=== PATIENT | female | born 1940 | race Caucasian/White ===

== ENCOUNTER 2018-08-03 18:00 | Inpatient (IN) | END 2018-08-12 18:24 | DRG 853 ==

== ENCOUNTER 2018-08-28 13:04 | Inpatient (IN) | payer MEDICARE, OTHER ==
[~2018-08-28] VITALS: Ht 165.1 cm; Wt 77.0 kg
[2018-08-28] VITALS (16 sets, daily range): BP systolic 146–180; BP diastolic 56–77; PULSE 71–97; RESP 16–33; Ht 165.1 cm; Wt 77.0 kg
[~2018-08-28 13:04] MED LIST: ACET325T45 PO; AMLO-147 PO; ASC500 PO; ATOR20TA38 PO; BISA10SU75 PR; CARV6.2579 PO; CLON-379 PO; CLON1PAT3 TD; HYDR-3670 PO; LACT10SO5 PO; LINA5TAB PO; LISI-471 PO; MAGN400O19 PO; METF100010 PO; MIRT7.5T8 PO; MULT-105 PO; NA P133E3 RC; ONDA4TAB95 PO; OXYC-380 PO; PREG300C PO; TERA2CAP3 PO; TIZA2TAB PO; ZINC220C5 PO
[2018-08-28] MEDS ORDERED: SOD CHLORIDE 0.9% 1,000 ML IV STA (13:05)
[2018-08-28] MEDS ORDERED: SOD CHLORIDE 0.9% 100 ML ONE (13:14)
[2018-08-28] MEDS ORDERED: IODIXANOL LOCM 100 ML BTL ONE (13:14)
--- NOTE | 2018-08-28 13:35 | NUR ---
Procedure Ordered:CTA CEREBRAL NECK ANGIO Reason for Exam Today: POSS STROKE Previous Exams: Allergies: Current Medications Taken: Glucophage ( ) Metformin ( ) Previous reaction to contrast media: Yes ( ) No (X ) : Yes ( ) No ( X) Asthma: Yes ( ) No (X ) Diabetes: Yes ( ) No ( X) Myeloma: Yes ( ) No (X ) Heart Disease: Yes ( ) No (X ) Cardiac Disease: Yes ( ) No XX( ) Kidney Disease: Yes ( ) No ( X) Vascular Disease: Yes ( ) No ( X) Patient Teaching done: Yes (X ) No ( ) Line Producer Used: Yes ( ) No (X ) Name of Line Producer: Language Used: As part of the test requested by your doctor, contrast media may be injected into your vein while the x-rays are being taken. Occasionally, reactions from IV contrast may occur. The physician and staff of this hospital are trained to treat these reactions. Select the type of Contrast that will be given to patient: Omnipaque 300 ( ) Omnipaque 350 ( ) Visipaque 320 (X ) Cystografin ( ) Gastrographin ( ) Redi-cat ( ) Volumen ( ) Amount of contrast to be given: 90CC IV ( X) PO ( ) Date given: 08/28/18 NO LABS AT TIME OF SCAN Lab Values: BUN: Creatinine: eGFR: Reason why contrast cannot be given: Location of patient pre-procedure: ER BED 19 Location of patient post procedure:ER BED 19 Patient tolerated exam well and returned to unit.
--- NOTE | 2018-08-28 14:16 | ERD ---
ER Documentation Chief Complaint Chief Complaint ALOC WITH LKWT YESTERDAY. O2 SAT 70% ON RA HPI Very limited history. This is a 77-year-old female who comes from assisted living facility with altered mental status. Paramedics were able to articulate the patient's last known normal was around 9 PM yesterday evening. Obtunded. Saturation at the facility was 95 but upon arrival saturation was found to be 70%. Remainder of HPI is extremely limited. The patient is responsive to verbal stimuli but generally weak with possible facial droop and weakness to the extremities possibly left greater than right. ROS All systems reviewed and are negative except as per history of present illness. Medications Home Meds Reported Medications Oxycodone Hcl-Acetaminophen* (Endocet*) 10-325 Mg Tablet, 1 TAB PO Q6H PRN for PAIN, TAB 08/03/18 Ondansetron Hcl* (Ondansetron Hcl*) 4 Mg Tablet, 4 MG PO Q4H PRN for NAUSEA AND OR VOMITING, TAB 08/03/18 Magnesium Hydroxide* (Milk Of Magnesia*) 400 Mg/5 Ml Oral.susp, 30 ML PO Q24H for CONSTIPATION, ML 08/03/18 Lactulose* (Lactulose*) 10 Gm/15 Ml Solution, 10 GM PO Q8, ML 08/03/18 Na Phos,M-B/Na Phos,Di-Ba (Enema) 133 Ml Enema, 133 ML RC Q2D PRN for NEEDED, ENEMA 08/03/18 Clonidine Hcl* (Clonidine Hcl*) 0.1 Mg Tab, 0.1 MG PO Q4H PRN for FOR SBP>160, TAB 08/03/18 Bisacodyl* (Bisacodyl*) 10 Mg Supp, 10 MG MI Q24H for CONSTIPATION, SUPP 08/03/18 Acetaminophen* (Acetaminophen*) 325 Mg Tablet, 650 MG PO Q4H PRN for PAIN 1- 12/07, #30 TAB OR FEVER 08/03/18 Clonidine Patch (CLONIDINE PATCH) 0.3 Mg/24 Hr Patch, 1 PATCH.WK TD Q SUN, #4 PATCH.WK 08/03/18 Tizanidine Hcl* (Tizanidine Hcl*) 2 Mg Tablet, 2 MG PO Q8H PRN for SPASTICITY, TAB 08/03/18 Pregabalin* (Lyrica*) 300 Mg Capsule, 300 MG PO BID, CAP 08/03/18 Hydralazine Hcl* (Hydralazine Hcl*) 10 Mg Tablet, 10 MG PO BID, #60 TAB 08/03/18 Carvedilol* (Carvedilol*) 6.25 Mg Tablet, 6.25 MG PO BID, #60 TAB 08/03/18 Zinc Sulfate* (Zinc Sulfate*) 220 Mg Cap, 220 MG PO DAILY, CAP 08/03/18 Linagliptin (TRADJENTA) 5 Mg Tablet, 5 MG PO DAILY, TAB 08/03/18 Multivitamin with Minerals (Multivitamins with Minerals) 1 Each Tablet, 1 EACH PO DAILY, TAB 08/03/18 Terazosin Hcl* (Terazosin Hcl*) 2 Mg Capsule, 2 MG PO HS, CAP 08/03/18 Mirtazapine* (Mirtazapine*) 7.5 Mg Tablet, 7.5 MG PO HS, TAB 08/03/18 Metformin Hcl* (Metformin Hcl*) 1,000 Mg Tablet, 2000 MG PO WITH BREAKFAST, #30 TAB 08/03/18 Lisinopril* (Lisinopril*) 20 Mg Tablet, 20 MG PO DAILY, #30 TAB 08/03/18 Atorvastatin Calcium* (Atorvastatin Calcium*) 20 Mg Tablet, 20 MG PO QHS, #30 TAB 08/03/18 Ascorbic Acid (Vitamin C) 500 Mg Tab, 500 MG PO DAILY, TAB 08/03/18 Amlodipine Besylate* (Amlodipine Besylate*) 10 Mg Tablet, 10 MG PO DAILY, #30 TAB 08/03/18 Allergies Allergies: Coded Allergies: Macrolide Antibiotics (Unverified Allergy, Unknown, 08/03/18) erythromycin base (Unverified Allergy, Unknown, 08/03/18) vancomycin (Unverified Allergy, Unknown, 08/03/18) PMhx/Soc History of Surgery: Yes Anesthesia Reaction: No Hx Neurological Disorder: No Hx Respiratory Disorders: No Hx Cardiac Disorders: Yes (htn ) Hx Psychiatric Problems: No Hx Miscellaneous Medical Probl: Yes (OBESITY STAGE I) Hx Alcohol Use: Yes Hx Substance Use: No Hx Tobacco Use: No Smoking Status: Never smoker FmHx Family History: No diabetes Physical Exam Vitals Vital Signs Date Temp Pulse Resp B/P (MAP) Pulse Ox O2 O2 Flow FiO2 Time Delivery Rate 08/28/18 80 96 30 14:12 08/28/18 Non 15 13:10 Rebreather 08/28/18 97.9 91 8 178/73 70 13:05 (108) Physical Exam General: Disheveled elderly female who is slow to respond Head: Normocephalic, atraumatic. Eyes: Pupils equally reactive, EOM intact ENT: Dry mucous membranes Neck: Supple, no lymphadenopathy Respiratory: Lungs clear bilaterally, no distress Cardiovascular: RRR, no murmurs, rubs, or gallops Abdominal: Soft, non-tender, non-distended, no peritoneal signs : Deferred MSK: Cyanotic extremities with generalized weakness and limited movement of her bilateral lower extremities. The patient has weakness to the bilateral upper extremities with slight left greater than right deficit. Neurologic: The patient is very slow to respond she is moving extremities but has somewhat of a deficits in the left upper extremity. This is inconsistent. Her dysfunction seems to be more global the patient does have a possible facial droop unclear if this is new versus old. Very limited exam Skin: No rash Result Diagram: 08/28/18 1311 08/28/18 1311 Results 24 hrs Laboratory Tests Test 08/28/18 13:05 08/28/18 13:11 08/28/18 13:17 Blood Gas Specimen Source Blood arterial Arterial Blood Date 08/28/2018 1:38:34 PM Drawn Arterial Blood pH 7.281 (Temp corrected) Arterial Blood pCO2 60.4 mmhg (Temp correct) Arterial Blood pO2 181.6 mmHG (Temp corrected) Arterial Blood HCO3 27.8 mmol/L Arterial Blood Base 0.4 mmol/L Excess Arterial Blood 98.5 mmHG Oxygen Saturation Humble Test ACCEPTAB Arterial Blood Gas Right Radial Puncture Site Arterial 2.7 % Blood Carboxyhemoglobin Arterial Blood 0.2 % Methemoglobin Blood Gas A-a O2 471.0 mmHg Differential Oxyhemoglobin Percent 95.6 % Blood Gas Temperature 37.0 C Blood Gas Modality MASK - NRB FiO2 100.0 % Blood Gas Critical Value DR. NICOLE Read Back Blood Gas Notified Whom Josiane Blood Gas Notified Time 08/28/2018 1:49:07 PM White Blood Count 7.3 10^3/ul Red Blood Count 2.94 10^6/ul Hemoglobin 8.7 g/dl Hematocrit 28.7 % Mean Corpuscular Volume 97.6 fl Mean Corpuscular 29.6 pg Hemoglobin Mean Corpuscular 30.3 g/dl Hemoglobin Concent Red Cell Distribution 14.6 % Width Platelet Count 170 10^3/UL Mean Platelet Volume 11.7 fl Immature Granulocytes % 0.600 % Neutrophils % 84.2 % Lymphocytes % 8.6 % Monocytes % 5.4 % Eosinophils % 0.8 % Basophils % 0.4 % Nucleated Red Blood Cells 0.0 /100WBC % Immature Granulocytes # 0.040 10^3/ul Neutrophils # 6.1 10^3/ul Lymphocytes # 0.6 10^3/ul Monocytes # 0.4 10^3/ul Eosinophils # 0.1 10^3/ul Basophils # 0.0 10^3/ul Nucleated Red Blood Cells 0.0 10^3/ul # Prothrombin Time 11.8 Sec Prothrombin Time Ratio 0.9 INR International 0.86 Normalized Ratio Activated 29.7 Sec Partial Thromboplast Time Sodium Level 141 mmol/L Potassium Level 6.0 mmol/L Chloride Level 105 mmol/L Carbon Dioxide Level 26 mmol/L Anion Gap 10 Blood Urea Nitrogen 24 mg/dl Creatinine 1.37 mg/dl Est Glomerular Filtrat mL/min Rate mL/min Glucose Level 188 mg/dl Hemoglobin A1c 6.9 % Calcium Level 9.0 mg/dl Total Bilirubin 0.1 mg/dl Direct Bilirubin 0.00 mg/dl Indirect Bilirubin 0.1 mg/dl Aspartate Amino 14 IU/L Transf (AST/SGOT) Alanine 17 IU/L Aminotransferase (ALT/SGP T) Alkaline Phosphatase 119 IU/L Creatine Kinase 40 IU/L Creatine Kinase Index 3.0 Creatinine Kinase MB 1.18 ng/ml (Mass) Troponin I 0.051 ng/ml Total Protein 6.1 g/dl Albumin 3.3 g/dl Globulin 2.80 g/dl Albumin/Globulin Ratio 1.17 Triglycerides Level 164 mg/dl Cholesterol Level 157 mg/dl LDL Cholesterol, 63 mg/dl Calculated HDL Cholesterol 61 mg/dl Cholesterol/HDL Ratio 2.5 RATIO Lipase 32 U/L Ethyl Alcohol Level < 10.0 mg/dl POC Venous Lactate 1.0 mmol/L Current Medications Medications Dose Sig/Lala Start Time Status Last (Trade) Ordered Route PRN Stop Time Admin Dose Reason Admin Sodium 1,000 ml @ Q1H STAT 08/28/18 DC Chloride 1,000 mls/hr IV 13:05 08/28/18 14:04 Iodixanol 100 ml STK-MED 08/28/18 DC 08/28/18 (Visipaque ONCE .ROUTE 13:14 13:45 Locm) 08/28/18 13:15 Sodium 100 ml @ ud STK-MED 08/28/18 DC 08/28/18 Chloride ONCE .ROUTE 13:14 13:46 08/28/18 13:15 Procedures/MDM EKG, MONITORS, & DIAGNOSTIC IMAGING: EKG: I reviewed and interpreted a 12-lead EKG. Rhythm: Normal sinus rhythm ST Changes: No contiguous ST segment elevations T waves: No contiguous T wave inversions Impression: [No evidence of acute cardiac ischemia] Chest x-ray: I reviewed and interpreted a 1 view of the chest Mediastinum: No enlargement Cardiac silhouette: cardiomegaly Airspace: Atelectasis without clear infiltrate Bones: No evidence of fracture LAB INTERPRETATION: * CBC shows no evidence of severe infection with a normal white count, slight anemia of 8.7 * Arterial blood gas shows evidence of hypercarbic respiratory acidosis * Chemistry profile with mild renal insufficiency, potassium of 6.0 normal lactic acid 1.0, negative troponin MEDICAL DECISION MAKING: The patient presents with acute encephalopathy, hypoxia and altered mental status. Unclear etiology and given possible deficits of the left upper extremity code stroke was initiated. The patient is not a TPA candidate given last known well time greater than 4-1/2 hours prior to arrival. The patient will have a CTA and if the patient is a large vessel occlusion she may be an interventional candidate but given her more global presentation this seems less likely to be secondary to acute ischemic stroke. ER COURSE: * Upon arrival a code stroke was initiated. I spoke to Dr. Vazquez, the telemedicine neurologist and discussed the case. Given that the patient has atypical presentation, is not a TPA candidate [id number] evaluation is not necessarily indicated. If the patient is in LVO she will evaluate the patient. I believe this is appropriate. She agrees with the plan of care. * Sepsis screening was initiated. * Supplemental oxygen improved the patient's oxygen saturation. * The patient's ABG shows respiratory acidosis, the patient will benefit from positive pressure ventilation. This point the patient is protecting her airway. Narcotics may be playing a role but reversal agent is not indicated as the patient is chronically on these medications at this may precipitate seizure and worsening symptoms. * Permissive hypoxia given COPD history would be appropriate. * No LVO on CTAs, not interventional candidate * Hyperkalemia likely to correct with fluid resuscitation. No indication for Kayexalate and the patient is not a good candidate given altered mental status. No EKG changes to suggest need for calcium. Continue to monitor. CONSULTATION: [None] DISPOSITION PLAN: Intensive care unit Accepting care team and consultations: I discussed the current laboratory data, diagnostic imaging and emergency care provided. Admitting team: Dr Maciel Admitting team indication: Insurance directed Critical Care Note: Total time: 40 minutes Indication/Organ System Threat: Acute hypoxemic respiratory failure I spent the above amount of critical care time with the patient, not including billable procedures. This included chart review, consultations, repeat bedside evaluations, and titration of appropriate medications to prevent cardiopulmonary or respiratory collapse. Departure Diagnosis: Primary Impression: Acute hypoxemic respiratory failure Additional Impressions: Acute encephalopathy Acute hypercapnic respiratory failure Polypharmacy Mild renal insufficiency Hyperkalemia Condition: Serious ERNA NICOLE MD Aug 28, 2018 14:16
[2018-08-28] MEDS ORDERED: NACL 0.9% 3 ML SYG IV SCH (15:00)
[2018-08-28] MEDS ORDERED: ONDANSETRON 4 MG INJ IV PRN (15:00)
[2018-08-28] MEDS ORDERED: BISACODYL 10 MG SUPP PR SCH (15:30)
[2018-08-28] MEDS ORDERED: MAGNESIUM HYDROXIDE 30ML CUP PO SCH (15:30)
--- NOTE | 2018-08-28 15:37 | HP ---
Date/Time of Note Date/Time of Note DATE: 08/28/18 TIME: 15:09 Assessment/Plan VTE Prophylaxis Pharmacological prophylaxis: heparin Lines/Catheters IV Catheter Type (from Nrsg): Saline Lock Assessment/Plan Assessment/Plan 77 yo woman with peripheral arterial disease s/p amputation and chronic pain; pacemaker for heart block presents with acute encephalopathy and respiratory failure #Encephalopathy #Respiratory failure, hypoxic and hypercapnic. - I believe this is likely due to polypharmacy, especially opioids, benzodiazepines, antispasmodics, and antidepressants. This is what we suspected last admission as well. I will hold all sedating meds for now. - Will hold off on narcan. Patient is protecting her airway and this can precipitate seizures. - Differential also includes: Infection: The patient does not appear septic with no fevers, WBC, or tachycardia. Source could be UA (RBC and WBC but no bacteria or leuk esterase), or pneumonia (CXR with nonspecific atelectasis and small effusion). I have a low suspicion for infection so will hold off on antibiotics. Cardiac: Patient denies chest pain. Trops mildly elevated. Will trend trops. EKG with bifascicular block. No e/o acute ischemia. Cerebrovascular: With her PAD and DM2, patient is at high risk of stroke. Will plan to get MRI when she is off bipap and clinically more stable. - Admit to ICU for monitoring. #NIDDM - Hold home antiglycemics - Insulin sliding scale. #Peripheral artery disease - Cont statin - Cont lyrica for pain. - Hold opioids for pain until mental status improves. #HTN - Cont norvasc, beta willa, - Hold ACEi if still hyperkalemic in AM #Hyperkalemia - This can be from extracellular shift due to profound acidemia. - Will trend. If remains elevated will consider insulin or kayexalate. #History of PUD with recent GI bleed - Continue PPI #CKD - Cr currently at baseline, around 1.3-1.4. - Avoid nephrotoxins, renally dose meds when indicated. Result Diagram: 08/28/18 1311 08/28/18 1311 HPI/ROS Admit Date/Time Admit Date/Time 08/28/[address] Hx of Present Illness Dr. Vazquez, the telemedicine neurologistMs. Ariane Tavares is a 77 yo woman with history of peripheral arterial disease and heart block requiring pacemaker who presents with AMS. Patient is confused and minimally responsive; most history is per charting and son at bedside. She was hospitalized here at [facility] 08/03-08/12 for bacteremia, heart block, and GI bleed. After discharge she was sent to SNF to finish a course of IV antibiotics. Around 08/18 she returned back to her assisted living, where she lives with her . The patient was in her usual state of health until this morning, when she was found by nursing staff to have altered mental status. Paramedics were able to a rticulate the patient's last known normal was around 9 PM yesterday evening. Obtunded. Saturation at the facility was 95 but upon arrival saturation was found to be 70%. According to her son she is on high doses of percocet for chronic peripheral vascular pain as well as Ativan for anxiety. In the ED, she was hypoxic saturating 70% on room air. She required nonrebreather mask. Code stroke was called, per discussion with Dr. Vazquez, the telemedicine neurologist, TPA would not be indicated so [id number] evaluation not needed. CT head without obvious LVO. Her oxygenation improved on BiPAP, she will admitted to ICU. ROS Subjective hx not possible: pt critical PMH/Family/Social Past Medical History Hypertension IDDM Peripheral arterial disease Heart block s/p PPM Peptic ulcer disease Chronic pain on opioid analgesics Medications Current Medications IV Flush (NS 3 ml) 3 ml PER PROTOCOL IV ; Start 08/28/18 at 15:00; Status UNV Ondansetron HCl (Zofran Inj) 4 mg Q6H PRN IV NAUSEA AND/OR VOMITING; Start 08/28/18 at 15:00; Status UNV Pantoprazole (Protonix Tab) 40 mg DAILY@06 PO ; Start 08/29/18 at 06:00; Status UNV Heparin Sodium (Porcine) (Heparin (5000 Units/1ml)) 5,000 unit Q12 SC ; Start 08/28/18 at 21:00; Status UNV Senna (Senokot) 2 tab BID PO ; Start 08/28/18 at 21:00; Status UNV Coded Allergies: Macrolide Antibiotics (Unverified Allergy, Unknown, 08/03/18) erythromycin base (Unverified Allergy, Unknown, 08/03/18) vancomycin (Unverified Allergy, Unknown, 08/03/18) Past Surgical History R BKA. Permanent pacemaker 07/2018 Past Surgical Hx: other Family History Significant Family History: other Social History Alcohol Use: none Smoking Status: Never smoker Drug Use: none Exam/Review of Systems Vital Signs Vitals Vital Signs Date Temp Pulse Resp B/P (MAP) Pulse Ox O2 O2 Flow FiO2 Time Delivery Rate 08/28/18 97.9 84 17 143/81 95 BIPAP 14:54 (101) 08/28/18 30 14:50 08/28/18 15 13:10 Exam Exam Gen: Frail appearing elderly woman confused on BiPAP. Eyes: Pupils nonreactive bilaterally. No icterus. HEENT: Apparent L facial droop. Tongue also appears to deviate L. Moist mucous membranes. Neck: No lymphadenopathy Chest: Palpable L pacemaker pocket. Card: Regular rate and rhythm, no murmurs Pulm: Clear to auscultation bilaterally. Abd: Soft, nontender, nondistended. No palpable organomegaly Ext: R BKA with prosthesis on. L leg well healed scar from surgical patellofemoral bypass. Palpable DP pulse 2+ HAL DUFF MD Aug 28, 2018 15:19
[2018-08-28] MEDS ORDERED: GLUCOSE GEL 15 GRAM TUBE PO PRN ×2 (16:00)
[2018-08-28] MEDS ORDERED: DEXTROSE 50% 50 ML SYRINGE IV PRN ×2 (16:00)
[2018-08-28] MEDS ORDERED: GLUCAGON 1 MG INJ IM PRN (16:00)
[2018-08-28] MEDS ORDERED: GLUCOSE GEL 15 GRAM TUBE BUCCAL PRN (16:00)
[2018-08-28] MEDS: INSULIN ASPART [NOVOLOG] 3 ML PEN SC SCH ×2 (17:35→21:00)
[2018-08-28] MEDS ORDERED: FLUCONAZOLE 150 MG TAB PO ONE (18:30)
--- NOTE | 2018-08-28 19:57 | NUR ---
Eoss -- Received Pt from ED RN - Pt lethargic but arousable and able to answer her name, son's name, name of hospital, and facility she came from - Pt placed on Bipap with Dr. Maciel present -Son Bao called updated on condition - Printed Pacemaker information for possible MRI - Endorsed to Night RN
[2018-08-28] MEDS: PREGABALIN 100 MG CAP PO SCH (21:00)
[2018-08-28] MEDS: SENNA TAB PO SCH (21:00)
[2018-08-28] MEDS: TERAZOSIN 2 MG CAP PO SCH (21:00)
[2018-08-28] MEDS: ATORVASTATIN 20 MG TAB PO SCH (21:00)
[2018-08-28] MEDS: HEPARIN 5,000 UNIT/1 ML VIAL SC SCH (21:32)
[2018-08-28] MEDS: hydrALAzine 20 MG INJ IV PRN (22:40)
[2018-08-29] VITALS (40 sets, daily range): BP systolic 125–183; BP diastolic 38–163; PULSE 61–97; RESP 15–30
[2018-08-29] MEDS ORDERED: ACCU-CHEK XX SCH (02:00)
[2018-08-29] MEDS: PANTOPRAZOLE 40 MG INJ IV SCH (05:31)
[2018-08-29] MEDS ORDERED: PANTOPRAZOLE (EC) 40 MG TAB PO SCH (06:00)
--- NOTE | 2018-08-29 06:15 | NUR ---
EOSS Received pt very lethargic but arouses when spoken to, responds appropriately but with short responses. Is able to move upper extremities but has weakness. Pt refused to take off jewelry therefore it is still on patient. Patient remains on BIPAP throughout night, critical ABG results reported to Dr. Oglesby, Bipap setting changes made. PRN hydralazine given once. PO meds held due to NPO, plus patient is too lethargic to do bedside swallow eval. Pt remains with low grade fever, cooling measures initiated, cool bed bath given, all linens changed, wound care dressing changed, bed in lowest position, bed brakes activated, repositioned q2h. Spoke to son Bao twice, updated on patient condition.
[2018-08-29] MEDS: INSULIN ASPART [NOVOLOG] 3 ML PEN SC SCH ×5 (07:35→21:28)
[2018-08-29] MEDS: LISINOPRIL 20 MG TAB PO SCH (08:39)
[2018-08-29] MEDS: PREGABALIN 100 MG CAP PO SCH ×2 (08:39→20:52)
[2018-08-29] MEDS: AMLODIPINE 10 MG TAB PO SCH (08:39)
[2018-08-29] MEDS: SENNA TAB PO SCH ×2 (08:39→20:52)
[2018-08-29] MEDS: HEPARIN 5,000 UNIT/1 ML VIAL SC SCH ×2 (08:59→21:28)
--- NOTE | 2018-08-29 09:19 | PN ---
Date/Time of Note Date/Time of Note DATE: 08/29/18 TIME: 09:10 Assessment/Plan VTE Prophylaxis Risk score (from Nsg)>0 risk: 7 SCD applied (from Nsg): Yes SCD contraindicated: other Pharmacological prophylaxis: heparin Lines/Catheters IV Catheter Type (from Nrsg): Peripheral IV Urinary Cath still in place: Yes Reason Cath still needed: urinary retention Assessment/Plan Assessment/Plan S: Patient still on BiPAP, awaiting ABG to be performed later this morning. O: VS - see below PE: Gen: Frail appearing elderly woman confused on BiPAP. Eyes: Pupils nonreactive bilaterally. No icterus. HEENT: Apparent L facial droop. Tongue also appears to deviate L. Moist mucous membranes. Neck: No lymphadenopathy Chest: Palpable L pacemaker pocket. Card: Regular rate and rhythm, no murmurs Pulm: Clear to auscultation bilaterally. Abd: Soft, nontender, nondistended. No palpable organomegaly Ext: R BKA with prosthesis on. L leg well healed scar from surgical patellofemoral bypass. Palpable DP pulse 2+ A/P: 77 yo woman with peripheral arterial disease s/p amputation and chronic pain; pacemaker for heart block presents with acute encephalopathy and respiratory failure #Encephalopathy -patient also respiratory failure - hypoxic and hypercapnic-both these possibly due to polypharmacy, especially opioids, benzodiazepines, antispasmodics, and antidepressants. This is what we suspected last admission as well. Has been on BiPAP since admission. -Continue to hold all sedating meds for now. -For now holding off on narcan. Patient is protecting her airway and this can precipitate seizures. -Given her initial facial droop, with her PAD and DM2, patient is at high risk of stroke. Will plan to get MRI when she is off bipap and clinically more stable. -Follow-up recommendations from pulmonary team, try to wean off BiPAP #NIDDM -sugars presently stable. A1c is 6.9. - Hold home antiglycemics - Insulin sliding scale. #Peripheral artery disease - Cont statin - Cont lyrica for pain. - Hold opioids for pain until mental status improves. #HTN -blood pressure presently stable - Cont norvasc, beta willa, - Hold ACEi if still hyperkalemic in AM #Hyperkalemia- This can be from extracellular shift due to profound acidemia. Potassium slightly improved this morning but still elevated overall 5.4 - Will trend. - If remains elevated will consider insulin or kayexalate. #History of PUD with recent GI bleed - Continue PPI #CKD- Cr currently at baseline, around 1.3-1.4. - Avoid nephrotoxins, renally dose meds when indicated Critical care time spent on patient care today equals 45 minutes. Result Diagram: 08/29/18 0423 08/29/18 0423 Results 24hrs Laboratory Tests Test 08/28/18 13:05 08/28/18 13:11 08/28/18 13:17 08/28/18 14:44 Blood Gas Blood arterial Specimen Source Arterial Blood 08/28/2018 1:38 Date Drawn :34 PM Arterial Blood 7.281 *L pH (Temp corrected ) Arterial Blood 60.4 H pCO2 (Temp correct) Arterial Blood 181.6 H pO2 (Temp corrected ) Arterial Blood 27.8 H HCO3 Arterial Blood 0.4 Base Excess Arterial Blood 98.5 Oxygen Saturati on Humble Test ACCEPTAB Arterial Blood Right Radial Gas Puncture Site Arterial 2.7 Blood Carboxyhe moglobin Arterial Blood 0.2 Methemoglobin Blood Gas A-a 471.0 H O2 Differential Oxyhemoglobin 95.6 Percent Blood Gas 37.0 Temperature Blood Gas MASK - NRB Modality FiO2 100.[address] NICOLE Critical Value Read Back Blood Gas Josiane Notified Whom Blood Gas 08/28/2018 1:49 Notified Time :07 PM White Blood 7.3 # Count Red Blood Count 2.94 L Hemoglobin 8.7 L Hematocrit 28.7 L Mean 97.6 Corpuscular Volume Mean 29.6 Corpuscular Hemoglobin Mean 30.3 L Corpuscular Hemoglobin Conc ent Red Cell 14.6 H Distribution Width Platelet Count 170 Mean Platelet 11.7 H Volume Immature 0.600 H Granulocytes % Neutrophils % 84.2 H Lymphocytes % 8.6 L Monocytes % 5.4 Eosinophils % 0.8 Basophils % 0.4 Nucleated Red 0.0 Blood Cells % Immature 0.040 H Granulocytes # Neutrophils # 6.1 Lymphocytes # 0.6 L Monocytes # 0.4 Eosinophils # 0.1 Basophils # 0.0 Nucleated Red 0.0 Blood Cells # Prothrombin 11.8 L Time Prothrombin 0.9 Time Ratio INR 0.86 International Normalized Rati o Activated 29.7 Partial Thrombo plast Time Sodium Level 141 Potassium Level 6.0 H Chloride Level 105 Carbon Dioxide 26 Level Anion Gap 10 Blood Urea 24 H Nitrogen Creatinine 1.37 H Est Glomerular Filtrat Rate mL/min Glucose Level 188 Hemoglobin A1c 6.9 H Calcium Level 9.0 Total Bilirubin 0.1 L Direct 0.00 Bilirubin Indirect 0.1 Bilirubin Aspartate Amino 14 L Transf (AST/SGO T) Alanine 17 Aminotransferas e (ALT/SGPT) Alkaline 119 Phosphatase Creatine Kinase 40 Creatine Kinase 3.0 Index Creatinine 1.18 Kinase MB (Mass) Troponin I 0.051 Total Protein 6.1 Albumin 3.3 Globulin 2.80 Albumin/Globuli 1.17 n Ratio Triglycerides 164 H Level Cholesterol 157 Level LDL 63 Cholesterol, Calculated HDL Cholesterol 61 Cholesterol/HDL 2.5 Ratio Lipase 32 Ethyl Alcohol < 10.0 H Level POC Venous 1.0 Lactate Urine Color YELLOW Urine Clarity CLEAR Urine pH 6.0 Urine Specific 1.024 Pixley Urine Ketones NEGATIVE Urine Nitrite NEGATIVE Urine Bilirubin NEGATIVE Urine NEGATIVE Urobilinogen Urine Leukocyte NEGATIVE Esterase Urine 1 Microscopic RBC Urine 6 H Microscopic WBC Urine NEGATIVE Hemoglobin Urine Glucose 1+ H Urine Total 3+ H Protein Urine Opiates Positive Screen Urine Negative Barbiturates Urine Negative Amphetamines Screen Urine Negative Benzodiazepines Screen Urine Cocaine Negative Screen Urine Negative Cannabinoids Test 08/28/18 15:58 08/28/18 17:01 08/28/18 17:18 08/28/18 21:06 Sodium Level 141 Potassium Level 5.8 H Chloride Level 108 Carbon Dioxide 26 Level Anion Gap 7 Blood Urea 22 H Nitrogen Creatinine 1.25 H Est Glomerular Filtrat Rate mL/min Glucose Level 164 Calcium Level 8.7 Phosphorus 5.5 H Level Magnesium Level 2.1 Lactic Acid 0.7 Level Troponin I 0.121 H Bedside Glucose 157 153 Test 08/28/18 22:46 08/29/18 00:52 08/29/18 04:23 08/29/18 05:00 Bedside Glucose 140 Troponin I 0.196 *H White Blood 5.7 # Count Red Blood Count 2.69 L Hemoglobin 8.0 L Hematocrit 25.7 L Mean 95.5 Corpuscular Volume Mean 29.7 Corpuscular Hemoglobin Mean 31.1 L Corpuscular Hemoglobin Conc ent Red Cell 14.6 H Distribution Width Platelet Count 145 Mean Platelet 11.9 H Volume Immature 0.300 Granulocytes % Neutrophils % 85.0 H Lymphocytes % 8.5 L Monocytes % 5.7 Eosinophils % 0.3 Basophils % 0.2 Nucleated Red 0.0 Blood Cells % Immature 0.020 Granulocytes # Neutrophils # 4.9 Lymphocytes # 0.5 L Monocytes # 0.3 Eosinophils # 0.0 Basophils # 0.0 Nucleated Red 0.0 Blood Cells # Sodium Level 140 Potassium Level 5.4 H Chloride Level 111 H Carbon Dioxide 26 Level Anion Gap 3 L Blood Urea 20 Nitrogen Creatinine 1.18 H Est Glomerular Filtrat Rate mL/min Glucose Level 140 Hemoglobin A1c 6.9 H Calcium Level 8.5 Phosphorus 4.7 Level Magnesium Level 2.0 Total Bilirubin 0.0 L Direct 0.00 Bilirubin Indirect 0.0 Bilirubin Aspartate Amino 14 L Transf (AST/SGO T) Alanine 14 Aminotransferas e (ALT/SGPT) Alkaline 101 Phosphatase Total Protein 5.3 L Albumin 2.6 L Globulin 2.70 Albumin/Globuli 0.96 n Ratio Thyroid 0.990 Stimulating Hormone (TSH) Blood Gas Blood Specimen arterial Source Arterial Blood 08/29/2018 5:0 Date Drawn 0:25 AM Arterial Blood 7.291 *L pH (Temp corrected ) Arterial Blood 57.1 H pCO2 (Temp correct) Arterial Blood 129.0 H pO2 (Temp corrected ) Arterial Blood 26.9 H HCO3 Arterial Blood -0.5 Base Excess Arterial Blood 97.8 Oxygen Saturati on Humble Test ACCEPTAB Arterial Blood Right Radial Gas Puncture Site Arterial 1.0 Blood Carboxyhe moglobin Arterial Blood 0.3 Methemoglobin Blood Gas A-a 163.3 H O2 Differential Oxyhemoglobin 96.5 Percent Blood Gas 37.0 Temperature Blood Gas 14.0 Respiration Rate Blood Gas 18 Actual Respiration Rat e Blood Gas MASK - BIPAP Modality FiO2 50.0 Blood Gas 15/5 IPAP/EPAP Ratio Blood Gas K. Critical Value MARCUS VALENTIN Read Back Blood Gas Notified Whom Blood Gas 08/29/2018 5:1 Notified Time 2:44 AM Test 08/29/18 08:54 Bedside Glucose 123 Exam/Review of Systems Vital Signs Vitals Vital Signs Date Temp Pulse Resp B/P (MAP) Pulse Ox O2 O2 Flow FiO2 Time Delivery Rate 08/29/18 62 22 139/49 100 BIPAP 06:00 (79) 08/29/18 40 05:56 08/29/18 100.0 04:30 08/28/18 15 13:10 Intake and Output 08/28/18 08/28/18 08/29/18 1515:00 23:00 07:00 IntakeIntake Total 1100 ml OutputOutput Total 800 ml 525 ml BalanceBalance -800 ml 575 ml Medications Medications Current Medications IV Flush (NS 3 ml) 3 ml PER PROTOCOL IV ; Start 08/28/18 at 15:00 Ondansetron HCl (Zofran Inj) 4 mg Q6H PRN IV NAUSEA AND/OR VOMITING Last administered on 08/29/18at 00:41; Admin Dose 4 MG; Start 08/28/18 at 15:00 Heparin Sodium (Porcine) (Heparin (5000 Units/1ml)) 5,000 unit Q12 SC Last administered on 08/29/18at 08:59; Admin Dose 5,000 UNIT; Start 08/28/18 at 21:00 Senna (Senokot) 2 tab BID PO ; Start 08/28/18 at 21:00 Amlodipine Besylate (Norvasc) 10 mg DAILY PO ; Start 08/29/18 at 09:00 Atorvastatin Calcium (Lipitor) 20 mg QHS PO ; Start 08/28/18 at 21:00 Carvedilol (Coreg) 6.25 mg BID PO ; Start 08/28/18 at 21:00 Hydralazine HCl (Apresoline) 10 mg BID PO ; Start 08/28/18 at 21:00 Lisinopril (Zestril) 20 mg DAILY PO ; Start 08/29/18 at 09:00 Pregabalin (Lyrica) 300 mg BID PO ; Start 08/28/18 at 21:00 Terazosin HCl (Hytrin) 2 mg HS PO ; Start 08/28/18 at 21:00 Miscellaneous Information 1 ea NOTE XX ; Start 08/28/18 at 16:00 Glucose (Glutose) 15 gm Q15M PRN PO DECREASED GLUCOSE; Start 08/28/18 at 16:00 Glucose (Glutose) 22.5 gm Q15M PRN PO DECREASED GLUCOSE; Start 08/28/18 at 16:00 Dextrose (D50w Syringe) 25 ml Q15M PRN IV DECREASED GLUCOSE; Start 08/28/18 at 16:00 Dextrose (D50w Syringe) 50 ml Q15M PRN IV DECREASED GLUCOSE; Start 08/28/18 at 16:00 Glucagon (Glucagen) 1 mg Q15M PRN IM DECREASED GLUCOSE; Start 08/28/18 at 16:00 Glucose (Glutose) 15 gm Q15M PRN BUCCAL DECREASED GLUCOSE; Start 08/28/18 at 16:00 Fluconazole (Diflucan) 150 mg ONCE ONCE PO ; Start 08/29/18 at 11:00; Stop 08/29/18 at 11:01 Hydralazine HCl (Apresoline) 10 mg Q4H PRN IV SBP ABOVE 170 Last administered on 08/28/18at 22:40; Admin Dose 10 MG; Start 08/28/18 at 21:00 Pantoprazole (Protonix Iv) 40 mg DAILY@06 IV Last administered on 08/29/18at 05:31; Admin Dose 40 MG; Start 08/29/18 at 06:00 Insulin Aspart (Novolog Insulin Pen) NOVOLOG *MODERATE* ALGORI... Q4 SC ; Start 08/29/18 at 09:00 JAIME RODRÍGUEZ Aug 29, 2018 09:19
--- NOTE | 2018-08-29 09:39 | NUR ---
ATTEMPTED TO DO BEDSIDE SWALLOW EVAL. UNABLE TO DO IT DUE TO PATIENT BEING TO LETHARGIC.
--- NOTE | 2018-08-29 10:31 | NUR ---
ST evaluation order appreciated and received. ST unable to complete bedside swallow evaluation at this time since pt is currently on BIPAP. Altered RN that ST will f/u schedule permits to determine pts safety with p.o intake due to her poor ability to maintain SPO2 level without desatting.
[2018-08-29] MEDS ORDERED: FLUCONAZOLE 150 MG TAB PO ONE (11:00)
[2018-08-29] MEDS: NICOTINE (21 MG/24 HR) PATCH TRANSDERM SCH (11:30)
--- NOTE | 2018-08-29 11:33 | NUR ---
SS NOTE: READMISSION PT ADMITTED FROM [facility]. CURRENTLY RESTING ON BIPAP. PT WAS DISCHARGED FROM THE HOSPITAL TO [facility] AND LATER WAS DISCHARGED BACK TO HER INDEPENDENT LIVING FACILITY, [facility] WHERE SHE LIVES WITH HER , [employer] . PT ALSO HAS A SON, DIANNE TSAI WHO IS IN THE AREA. PT DOES NOT HAVE AHCD IN THE CHART. SW UNABLE TO CONTACT PT'S FAMILY TO INQUIRED ABOUT PT'S AHCD. PT'S D/C PLANS AT THIS TIME IS PENDING ON PT'S CONDITION AND LEVEL OF CARE NEEDED ONCE PT IS CLOSER TO D/C. SW WILL CONTINUE TO F/U WITH PT AND FAMILY NEEDED.
--- NOTE | 2018-08-29 11:47 | NUR ---
DR RODRÍGUEZ NOTIFIED OF PATIENT NOT BEING ABLE TO TAKE ANY PO MEDS REGARDING DIFLUCAN. NO ORDERS GIVEN AT THIS TIME.
[2018-08-29] MEDS ORDERED: CLONIDINE 0.1 MG/24 HR PATCH TRANSDERM SCH (13:30)
[2018-08-29] MEDS: ALBUTEROL/IPRATROPIUM (NEB) 3 ML AMP HHN SCH ×2 (13:33→20:00)
--- NOTE | 2018-08-29 13:57 | CONS ---
DATE OF ADMISSION: 08/28/2018 DATE OF CONSULTATION: 08/29/2018 REASON FOR CONSULTATION: Shortness of breath, altered mental status. Thank you, Dr. Duff, for this consultation. HISTORY OF PRESENT ILLNESS: This is a 77-year-old lady with extensive tobacco history, half to 1 pac k per day for 50+ years. Originally presented with altered mental status, respiratory distress, foun d to have hyperkalemia with worsening respiratory acidosis. The patient initially placed on noninvas compa positive pressure ventilation this morning and improvement in her neurological status. However, did not tolerate coming off bilevel ventilation. PAST MEDICAL HISTORY: 1. COPD. 2. Insulin-dependent diabetes. 3. Essential hypertension. 4. Peripheral vascular disease. 5. Mild chronic renal insufficiency. MEDICATIONS: Per chart. ALLERGIES: None. SOCIAL HISTORY: Positive tobacco history. Alcohol: Unknown. PHYSICAL EXAMINATION: GENERAL: Well-nourished, well-developed lady, comfortable at rest, no acute distress. VITAL SIGNS: Currently afebrile, pulse is 78, blood pressure 160/55, O2 saturation 96% on FIO2 40%. NECK: Supple. No JVD or lymphadenopathy. CARDIAC: S1, S2, no added sounds or murmurs. CHEST: Diminished air entry bilaterally. ABDOMEN: Soft, nontender. No guarding or rebound. EXTREMITIES: No cyanosis, clubbing, edema. NEUROLOGIC: Grossly intact. No focal deficits. DIAGNOSTIC DATA: Chest x-ray showed mild cardiomegaly with mild congestive cardiac failure, AICD in place. LABORATORY DATA: ABG: pH 7.29, pCO2 of 57, pO2 129, BUN 20, creatinine 1.18. INR was 0.86. White count 5.7, hemoglobin 8, platelets of 145. U-tox was positive for opiates. Urinalysis unremarkable. CT brain showed mild atrophy, no acute ischemic event. IMPRESSION AND PLAN: 1. Encephalopathy, likely secondary to hypercapnia from acute on chronic obstructive pulmonary disea se exacerbation. 2. Chronic hypercapnic respiratory failure, likely secondary to significant underlying chronic lung disease. 3. Peripheral vascular disease status post amputation. 4. Essential hypertension. 5. Renal insufficiency. The patient will require: 1. Continued noninvasive positive pressure ventilation. 2. Steroids for COPD exacerbation. 3. May require insulin drip. 4. Hyperglycemia. 4. BP management. 5. DVT and GI prophylaxis. Dictated By: KRISTEN BOLDEN MD SV/NTS Conf#: [id number] DID#: [id number] CC: HAL DUFF MD;*End*
--- NOTE | 2018-08-29 14:07 | NUR ---
FLAT [employer]ING MACHINE CLERK CALLED STATING PATIENT CAN NOT HAVE THE MRI DONE DUE TO PACEMAKER. DR RODRÍGUEZ NOTIFIED.
[2018-08-29] MEDS: METHYLPREDNISOLONE 125 MG INJ IV SCH ×2 (14:14→21:18)
--- NOTE | 2018-08-29 15:00 | NUR ---
OT NOTE: Attempted to see pt for skilled OT tx. Pt was lethargic and unable to engage in tx. Will reattempt when able.
[2018-08-29] MEDS ORDERED: NA POLYST SULFON 15 GM/60 ML BTL PO ONE (16:00)
[2018-08-29] MEDS ORDERED: NA POLYST SULFON 15 GM/60 ML BTL PR ONE (16:00)
[2018-08-29] MEDS: hydrALAzine 20 MG INJ IV PRN (17:35)
--- NOTE | 2018-08-29 18:28 | NUR ---
EOSS: PATIENT REMAINED STABLE THIS SHIFT. PATIENT PUT ON NC AT 0930 THIS AM, WITHIN 10 MINS WENT TO ATTEMPT A SWALLOW EVAL BUT PATIENT WAS TOO LETHARGIC AND HARD TO AROUSE. PER DR BOLDEN PATIENT PUT BACK ON BIPAP AT 0945. BS CHECKS WNL AND NO COVERAGE NEED THIS SHIFT. 1145 TROPONIN LEVELS NOTIFIED TO DR KING. ORDER GIVEN FOR NEXT DRAW TO BE TOMORROW MORNING. PATIENT CHECKED ON HOURLY AND PRN BY NURSING STAFF.
[2018-08-29] MEDS: TERAZOSIN 2 MG CAP PO SCH (20:51)
[2018-08-29] MEDS: ATORVASTATIN 20 MG TAB PO SCH (20:51)
[2018-08-29] MEDS: morphine SULFATE/PF (2 MG/2 ML) SYG IV PRN (21:19)
[2018-08-30] VITALS (16 sets, daily range): BP systolic 125–191; BP diastolic 39–129; PULSE 60–93; RESP 11–25
[2018-08-30] MEDS: INSULIN ASPART [NOVOLOG] 3 ML PEN SC SCH ×6 (01:33→20:43)
[2018-08-30] MEDS: PANTOPRAZOLE 40 MG INJ IV SCH (05:09)
[2018-08-30] MEDS: METHYLPREDNISOLONE 125 MG INJ IV SCH (05:10)
[2018-08-30] MEDS: morphine SULFATE/PF (2 MG/2 ML) SYG IV PRN (05:18)
[2018-08-30] MEDS: ALBUTEROL/IPRATROPIUM (NEB) 3 ML AMP HHN SCH ×3 (07:50→20:56)
--- NOTE | 2018-08-30 07:57 | CONS ---
DATE OF ADMISSION: 08/28/2018 DATE OF CONSULTATION: 08/29/2018 REASON FOR CONSULTATION: Positive troponin. REQUESTING PHYSICIAN: Jaime Rodríguez MD HISTORY OF PRESENT ILLNESS: Ms. Tavares is a 77-year-old female with a history of heart block, status post permanent pacemaker, diabetes mellitus, peripheral arterial disease, status post right lower ext remity amputation, hypertension, peptic ulcer disease, chronic kidney disease who presented with alte red mental state, shortness of breath. Upon arrival, temperature 97.8, blood pressure 138/73, pulse 91, respiratory rate 18, satting %. The patient's labs revealed sodium of 141, potassium of 6, creatinine 1.27, BUN 24. Magnesium of 2.1. Troponin negative 0.051, LDL 63, HDL 61. TSH is 0.990, within normal limits. INR 0.96. White blood cell count 7.3. Hemoglobin 8.7, platelet count of 170. ABG revealing a pH of 7.281, a PaO2 of 181, a pCO2 of 60. The patient underwent a CT of the neck r evealing no major intracranial arterial occlusion or significant stenosis. Circumferential calcified plaque at the right carotid bulb, eccentric calcified plaque at the left carotid bulb. Less than 30 % focal calcific plaque at the origin of the right vertebral artery, mildly enlarged prevascular lymp h nodes. The patient had a chest x-ray revealing cardiomegaly, vascular calcification, pulmonary vas cular congestion and a head CT that revealed atrophy, white matter disease compatible with chronic sm all vessel ischemia. Patient subsequently required initiation of BiPAP and is admitted to the ICU. Since admit to the ICU, the patient has remained on BiPAP and is more arousable. PAST MEDICAL HISTORY: As above in HPI. MEDICATIONS CURRENTLY IN HOSPITAL: 1. Solu-Medrol 60 mg q.8h. 2. DuoNebs. 3. Nicoderm patch 21 mg. 4. Norvasc 10 mg daily. 5. Zestril 20 mg daily. 6. Insulin sliding scale. 7. Protonix. 8. Heparin 5000 subcu. 9. Lipitor 20 mg at bedtime. 10. Carvedilol 6.25 mg p.o. b.i.d. 11. Hydralazine 10 mg b.i.d. 12. Terazosin 2 mg at bedtime. 13. Hydralazine p.r.n. ALLERGIES: Macrolide antibiotics, vancomycin. SOCIAL HISTORY: Prior tobacco, no ETOH or illicit drug use. FAMILY HISTORY: No history of sudden cardiac or early CAD. REVIEW OF SYSTEMS: As above in HPI. CONSTITUTIONAL: No fevers, chills. PULMONARY: Respiratory failure, on BiPAP. GASTROINTESTINAL: No vomiting. GENITOURINARY: No hematuria. MUSCULOSKELETAL: Degenerative joint disease. PSYCHIATRIC: The patient denies depression. NEUROLOGIC: No documented history of CVA. ENDOCRINE: Diabetes mellitus. PHYSICAL EXAMINATION: VITAL SIGNS: Temperature 98.7, blood pressure most recently 164/55, pulse 73, respiratory of 17, sat ting 100% on BiPAP. GENERAL: The patient is alert, awake. NECK: JVP approximately 9 cm of water. CHEST: Upper extremities are rhonchorous sounds. HEART: Regular rate and rhythm. Normal S1, S2, I/ systolic murmur, nondisplaced PMI. ABDOMEN: Positive bowel sounds, soft. EXTREMITIES: Left lower extremity, no significant pitting edema. Right lower extremity, status post amputation. LABORATORY DATA: ABG from today revealing a pH of 7.291, a PaO2 of 129, pCO2 of 57. Sodium 140, pot assium 5.4, creatinine of 1.1, BUN of 20. Troponin now positive at 0.196. White blood cell 5.7, hem oglobin 8, platelet count 145. IMAGING STUDIES: As above in HPI. No further imaging studies for my review at this time. ECG: Reveals normal sinus rhythm at a rate of 88 with left axis deviation, right bundle branch block , left anterior fascicular block, secondary repolarization abnormalities. IMPRESSION: 1. Positive troponin, likely a type 2 demand infarct in the setting of respiratory distress, respira tory failure. 2. Hypertension. 3. Possible congestive heart failure with chest x-ray, diastolic by most recent echo July 2018, revealing a preserved EF of 60-65%, acute on chronic. 4. Hypercarbic respiratory failure. 5. Altered mental state. 6. Anemia. 7. Renal insufficiency. 8. Peripheral arterial disease, status post right lower extremity amputation. RECOMMENDATIONS: 1. At this time, would maintain the patient in ICU on close monitoring. 2. Continue the patient's BiPAP support and continue the patient's steroids, bronchodilators. 3. The patient is not able to any at this time on BiPAP and we tried to patient as possi ble and would use IV push p.r.n. hydralazine. Patient continues to have elevated blood pressures can start clonidine patch. 4. We will follow the patients closely, possible need for diuresis. 5. Continue to trend the patient's cardiac enzymes, assess for any significant ongoing cardiac damag e. 6. Follow the potassium closely. 7. Would continue to check serial EKGs, assess for development changes. 8. We will place her on aspirin at this time for prophylaxis for cardiovascular events and follow th e patient's hemoglobin closely. Thank you for allowing me to take part in the care of this patient. I will continue to follow very c losely with you with further recommendations to be made as the patient progresses through his [facility] clinical course. Dictated By: HAL HOUSE/KYRA Conf#: [id number] DID#: [id number] CC: JAIME RODRÍGUEZ; HAL DUFF MD;*EndCC*
[2018-08-30] MEDS ORDERED: PREGABALIN 50 MG CAP PO SCH (08:30)
[2018-08-30] MEDS: NICOTINE (21 MG/24 HR) PATCH TRANSDERM SCH (09:00)
[2018-08-30] MEDS: ASPIRIN 81 MG TAB PO SCH (09:55)
[2018-08-30] MEDS: AMLODIPINE 10 MG TAB PO SCH (09:56)
[2018-08-30] MEDS: SENNA TAB PO SCH ×2 (09:56→20:27)
[2018-08-30] MEDS: LISINOPRIL 20 MG TAB PO SCH (09:57)
--- NOTE | 2018-08-30 10:00 | NUR ---
PT REFUSED ABG PT REFUSED HER ABG. MD BOLDEN MADE AWARE.
--- NOTE | 2018-08-30 10:01 | CONS ---
Date/Time of Note Date/Time of Note DATE: 08/30/18 TIME: 09:59 Consult Date/Type/Reason Admit Date/Time Aug 28, 2018 at 14:35 Initial Consult Date Type of Consultation: Pulm ICU Subjective Awake alert, declined bipap overnight. Objective Vital Signs Date Temp Pulse Resp B/P (MAP) Pulse Ox O2 O2 Flow FiO2 Time Delivery Rate 08/30/18 64 08:00 08/30/18 16 100 07:00 08/30/18 136/81 Nasal 4.0 06:00 (99) Cannula 08/30/18 98.7 04:00 08/29/18 40 19:28 Intake and Output 08/29/18 08/29/18 08/30/18 1515:00 23:00 07:00 IntakeIntake Total 120 ml OutputOutput Total 350 ml 705 ml 234 ml BalanceBalance -350 ml -705 ml -114 ml Exam GENERAL: Well-nourished, well-developed lady, comfortable at rest, no acute distress. VITAL SIGNS: NECK: Supple. No JVD or lymphadenopathy. CARDIAC: S1, S2, no added sounds or murmurs. CHEST: Diminished air entry bilaterally. ABDOMEN: Soft, nontender. No guarding or rebound. EXTREMITIES: No cyanosis, clubbing, edema. NEUROLOGIC: Grossly intact. No focal deficits. Results/Medications Result Diagram: 08/30/18 0434 08/30/18 0434 Results 24 hrs Laboratory Tests Test 08/29/18 11:39 08/29/18 11:43 08/29/18 12:47 08/29/18 13:43 Bedside Glucose 119 116 Troponin I 0.218 *H Sodium Level 142 Potassium Level 5.3 H Chloride Level 110 Carbon Dioxide 27 Level Anion Gap 5 Blood Urea 20 Nitrogen Creatinine 1.25 H Est Glomerular Filtrat Rate mL/min Glucose Level 112 Calcium Level 8.8 Test 08/29/18 16:42 08/29/18 19:34 08/29/18 21:24 08/30/18 01:30 Bedside Glucose 129 183 143 Blood Gas Blood arterial Specimen Source Arterial Blood 08/29/2018 8:30 Date Drawn :10 PM Arterial Blood 7.454 H pH (Temp corrected ) Arterial Blood 31.5 L pCO2 (Temp correct) Arterial Blood 111.8 H pO2 (Temp corrected ) Arterial Blood 21.6 L HCO3 Arterial Blood -1.7 Base Excess Arterial Blood 97.8 Oxygen Saturati on Humble Test ACCEPTAB Arterial Blood Right Radial Gas Puncture Site Arterial 0.1 Blood Carboxyhe moglobin Arterial Blood 0.2 Methemoglobin Blood Gas A-a 130.0 H O2 Differential Oxyhemoglobin 97.5 Percent Blood Gas 37.0 Temperature Blood Gas 20 Actual Respiration Rat e Blood Gas NASAL CANNULA Modality FiO2 39.0 Blood Gas Notified Whom Blood Gas 08/29/2018 8:41 Notified Time :44 PM Test 08/30/18 04:34 08/30/18 05:08 08/30/18 09:38 White Blood 2.7 #L Count Red Blood Count 2.98 L Hemoglobin 8.9 L Hematocrit 27.9 L Mean 93.6 Corpuscular Volume Mean 29.9 Corpuscular Hemoglobin Mean 31.9 L Corpuscular Hemoglobin Conc ent Red Cell 14.6 H Distribution Width Platelet Count 158 Mean Platelet 12.6 H Volume Immature 1.100 H Granulocytes % Neutrophils % 75.5 Lymphocytes % 20.4 Monocytes % 3.0 Eosinophils % 0.0 Basophils % 0.0 Nucleated Red 0.0 Blood Cells % Immature 0.030 Granulocytes # Neutrophils # 2.0 Lymphocytes # 0.6 L Monocytes # 0.1 L Eosinophils # 0.0 Basophils # 0.0 Nucleated Red 0.0 Blood Cells # Sodium Level 144 Potassium Level 5.5 H Chloride Level 114 H Carbon Dioxide 21 Level Anion Gap 9 Blood Urea 26 H Nitrogen Creatinine 1.32 H Est Glomerular Filtrat Rate mL/min Glucose Level 145 Calcium Level 9.2 Troponin I 0.145 *H Bedside Glucose 161 190 Medications Current Medications IV Flush (NS 3 ml) 3 ml PER PROTOCOL IV ; Start 08/28/18 at 15:00 Ondansetron HCl (Zofran Inj) 4 mg Q6H PRN IV NAUSEA AND/OR VOMITING Last administered on 08/29/18at 00:41; Admin Dose 4 MG; Start 08/28/18 at 15:00 Heparin Sodium (Porcine) (Heparin (5000 Units/1ml)) 5,000 unit Q12 SC Last administered on 08/29/18at 21:28; Admin Dose 5,000 UNIT; Start 08/28/18 at 21:00 Senna (Senokot) 2 tab BID PO ; Start 08/28/18 at 21:00 Amlodipine Besylate (Norvasc) 10 mg DAILY PO ; Start 08/29/18 at 09:00 Atorvastatin Calcium (Lipitor) 20 mg QHS PO ; Start 08/28/18 at 21:00 Carvedilol (Coreg) 6.25 mg BID PO ; Start 08/28/18 at 21:00 Hydralazine HCl (Apresoline) 10 mg BID PO ; Start 08/28/18 at 21:00 Lisinopril (Zestril) 20 mg DAILY PO ; Start 08/29/18 at 09:00 Pregabalin (Lyrica) 300 mg BID PO ; Start 08/28/18 at 21:00; Status Hold Terazosin HCl (Hytrin) 2 mg HS PO ; Start 08/28/18 at 21:00 Miscellaneous Information 1 ea NOTE XX ; Start 08/28/18 at 16:00 Glucose (Glutose) 15 gm Q15M PRN PO DECREASED GLUCOSE; Start 08/28/18 at 16:00 Glucose (Glutose) 22.5 gm Q15M PRN PO DECREASED GLUCOSE; Start 08/28/18 at 16:00 Dextrose (D50w Syringe) 25 ml Q15M PRN IV DECREASED GLUCOSE; Start 08/28/18 at 16:00 Dextrose (D50w Syringe) 50 ml Q15M PRN IV DECREASED GLUCOSE; Start 08/28/18 at 16:00 Glucagon (Glucagen) 1 mg Q15M PRN IM DECREASED GLUCOSE; Start 08/28/18 at 16:00 Glucose (Glutose) 15 gm Q15M PRN BUCCAL DECREASED GLUCOSE; Start 08/28/18 at 16:00 Hydralazine HCl (Apresoline) 10 mg Q4H PRN IV SBP ABOVE 170 Last administered on 08/29/18at 17:35; Admin Dose 10 MG; Start 08/28/18 at 21:00 Pantoprazole (Protonix Iv) 40 mg DAILY@06 IV Last administered on 08/30/18at 05:09; Admin Dose 40 MG; Start 08/29/18 at 06:00 Insulin Aspart (Novolog Insulin Pen) NOVOLOG *MODERATE* ALGORI... Q4 SC Last administered on 08/30/18at 05:17; Admin Dose 2 UNIT; Start 08/29/18 at 09:00 Methylprednisolone Sodium Succinate (Solu-Medrol) 60 mg Q8 IV Last administered on 08/30/18at 05:10; Admin Dose 60 MG; Start 08/29/18 at 14:00 Albuterol/ Ipratropium (Duoneb) 3 ml Q6HWA RESP THERAPY HHN Last administered on 08/29/18at 13:33; Admin Dose 3 ML; Start 08/29/18 at 14:00 Nicotine (Nicoderm 21 Mg/ 24hr) 1 patch DAILY TRANSDERM Last administered on 08/29/18at 11:30; Admin Dose 1 PATCH; Start 08/29/18 at 11:30 Aspirin (Aspirin) 81 mg DAILY PO ; Start 08/30/18 at 09:00 Clonidine HCl (Catapres-Tts 1 Patch) 1 patch Q7D TRANSDERM Last administered on 08/29/18at 14:15; Admin Dose 1 PATCH; Start 08/29/18 at 13:30 Morphine Sulfate (morphine SULFATE (PF)) 3 mg Q4H PRN IV SEVERE PAIN LEVEL 7-10 Last administered on 08/30/18at 05:18; Admin Dose 3 MG; Start 08/29/18 at 21:00; Stop 08/30/18 at 20:59 Pregabalin (Lyrica) 300 mg ONCE PO ; Start 08/30/18 at 08:30; Stop 08/30/18 at 12:00 Assessment/Plan Chief Complaint/Hosp Course IMPRESSION AND PLAN: 1. Encephalopathy, likely secondary to hypercapnia from acute on chronic obstructive pulmonary disease exacerbation. Resolved. 2. Chronic hypercapnic respiratory failure, likely secondary to significant underlying chronic lung disease. 3. Peripheral vascular disease status post amputation. 4. Essential hypertension. 5. Renal insufficiency. 6. Aspiration risk. The patient will require: 1. Continued noninvasive positive pressure ventilation as tolerated. 2. Steroids for COPD exacerbation. 3. May require insulin drip. 4. Hyperglycemia. 4. BP management. 5. DVT and GI prophylaxis. 6. [facility] Transfer to [place] [id number] mins KRISTEN BOLDEN MD, FCCP Aug 30, 2018 10:01
[2018-08-30] MEDS: HEPARIN 5,000 UNIT/1 ML VIAL SC SCH ×2 (10:04→20:43)
--- NOTE | 2018-08-30 11:47 | PN ---
Date/Time of Note Date/Time of Note DATE: 08/30/18 TIME: 11:43 Assessment/Plan VTE Prophylaxis Risk score (from Ns)>0 risk: 9 SCD applied (from Ns): No SCD contraindicated: other Pharmacological prophylaxis: heparin Lines/Catheters [facility] [place] [facility] Urinary Cath still in place: Yes Reason Cath still needed: urinary retention Assessment/Plan Hospital Course S: Patient more awake today, seen by pulmonary team. Asking for pain medications. O: VS - see below PE: Gen: Frail appearing elderly woman, more awake and alert Eyes: Pupils nonreactive bilaterally. No icterus. HEENT: Apparent L facial droop. Tongue also appears to deviate L. Moist mucous membranes. Neck: No lymphadenopathy Chest: Palpable L pacemaker pocket. Card: Regular rate and rhythm, no murmurs Pulm: Clear to auscultation bilaterally. Abd: Soft, nontender, nondistended. No palpable organomegaly Ext: R BKA. L leg well healed scar from surgical patellofemoral bypass A/P: 77 yo woman with peripheral arterial disease s/p amputation and chronic pain; pacemaker for heart block presents with acute encephalopathy and respiratory failure #Encephalopathy -patient also respiratory failure - hypoxic and hypercapnic-both these possibly due to polypharmacy, especially opioids, benzodiazepines, antispasmodics, and antidepressants. This is what we suspected last admission as well. Has been on BiPAP since admission. -Continue to hold most of sedating meds for now -For now holding off on narcan. Patient is protecting her airway and this can precipitate seizures. . -Follow-up recommendations from pulmonary team #NIDDM -sugars presently stable. A1c is 6.9. - Hold home antiglycemics - Insulin sliding scale. #Peripheral artery disease - Cont statin - Cont lyrica for pain. - Hold opioids for pain until mental status improves. #HTN -blood pressure presently stable - Cont norvasc, beta willa, - Hold ACEi if still hyperkalemic in AM #Hyperkalemia- Potassium slightly improved this morning but still elevated overall 5.5 - Will trend. - If remains elevated will consider insulin or kayexalate. #History of PUD with recent GI bleed - Continue PPI #CKD- Cr currently at baseline, around 1.3-1.4. - Avoid nephrotoxins, renally dose meds when indicated Critical care time spent on patient care today equals 45 minutes. Result Diagram: 08/30/18 0434 08/30/18 0434 Results 24hrs Laboratory Tests Test 08/29/18 12:47 08/29/18 13:43 08/29/18 16:42 08/29/18 19:34 Bedside Glucose 116 129 Sodium Level 142 Potassium Level 5.3 H Chloride Level 110 Carbon Dioxide 27 Level Anion Gap 5 Blood Urea 20 Nitrogen Creatinine 1.25 H Est Glomerular Filtrat Rate mL/min Glucose Level 112 Calcium Level 8.8 Blood Gas Blood arterial Specimen Source Arterial Blood 08/29/2018 8:30 Date Drawn :10 PM Arterial Blood 7.454 H pH (Temp corrected ) Arterial Blood 31.5 L pCO2 (Temp correct) Arterial Blood 111.8 H pO2 (Temp corrected ) Arterial Blood 21.6 L HCO3 Arterial Blood -1.7 Base Excess Arterial Blood 97.8 Oxygen Saturati on [place]ble Test ACCEPTAB Arterial Blood Right Radial Gas Puncture Site Arterial 0.1 Blood Carboxyhe moglobin Arterial Blood 0.2 Methemoglobin Blood Gas A-a 130.0 H O2 Differential Oxyhemoglobin 97.5 Percent Blood Gas 37.0 Temperature Blood Gas 20 Actual Respiration Rat e Blood Gas NASAL CANNULA Modality FiO2 39.0 Blood Gas Notified Whom Blood Gas 08/29/2018 8:41 Notified Time :44 PM Test 08/29/18 21:24 08/30/18 01:30 08/30/18 04:34 08/30/18 05:08 Bedside Glucose 183 143 161 White Blood 2.7 #L Count Red Blood Count 2.98 L Hemoglobin 8.9 L Hematocrit 27.9 L Mean 93.6 Corpuscular Volume Mean 29.9 Corpuscular Hemoglobin Mean 31.9 L Corpuscular Hemoglobin Conc ent Red Cell 14.6 H Distribution Width Platelet Count 158 Mean Platelet 12.6 H Volume Immature 1.100 H Granulocytes % Neutrophils % 75.5 Lymphocytes % 20.4 Monocytes % 3.0 Eosinophils % 0.0 Basophils % 0.0 Nucleated Red 0.0 Blood Cells % Immature 0.030 Granulocytes # Neutrophils # 2.0 Lymphocytes # 0.6 L Monocytes # 0.1 L Eosinophils # 0.0 Basophils # 0.0 Nucleated Red 0.0 Blood Cells # Sodium Level 144 Potassium Level 5.5 H Chloride Level 114 H Carbon Dioxide 21 Level Anion Gap 9 Blood Urea 26 H Nitrogen Creatinine 1.32 H Est Glomerular Filtrat Rate mL/min Glucose Level 145 Calcium Level 9.2 Troponin I 0.145 *H Test 08/30/18 09:38 Bedside Glucose 190 Exam/Review of Systems Vital Signs Vitals Vital Signs Date Temp Pulse Resp B/P (MAP) Pulse Ox O2 O2 Flow FiO2 Time Delivery Rate 08/30/18 4.0 10:43 08/30/18 64 08:00 08/30/18 16 100 07:00 08/30/18 136/81 Nasal 06:00 (99) Cannula 08/30/18 98.7 04:00 08/29/18 40 19:28 Intake and Output 08/29/18 08/29/18 08/30/18 1515:00 23:00 07:00 IntakeIntake Total 120 ml OutputOutput Total 350 ml 705 ml 234 ml BalanceBalance -350 ml -705 ml -114 ml Medications Medications Current Medications IV Flush (NS 3 ml) 3 ml PER PROTOCOL IV ; Start 08/28/18 at 15:00 Ondansetron HCl (Zofran Inj) 4 mg Q6H PRN IV NAUSEA AND/OR VOMITING Last administered on 08/29/18at 00:41; Admin Dose 4 MG; Start 08/28/18 at 15:00 Heparin Sodium (Porcine) (Heparin (5000 Units/1ml)) 5,000 unit Q12 SC Last administered on 08/30/18 10:04; Admin Dose 5,000 UNIT; Start 08/28/18 at 21:00 Senna (Senokot) 2 tab BID PO Last administered on 08/30/18 09:56; Admin Dose 2 TAB; Start 08/28/18 at 21:00 Amlodipine Besylate (Norvasc) 10 mg DAILY PO Last administered on 08/30/18 09:56; Admin Dose 10 MG; Start 08/29/18 at 09:00 Atorvastatin Calcium (Lipitor) 20 mg QHS PO ; Start 08/28/18 at 21:00 Carvedilol (Coreg) 6.25 mg BID PO Last administered on 08/30/18 09:56; Admin Dose 6.25 MG; Start 08/28/18 at 21:00 Hydralazine HCl (Apresoline) 10 mg BID PO Last administered on 08/30/18 09:55; Admin Dose 10 MG; Start 08/28/18 at 21:00 Lisinopril (Zestril) 20 mg DAILY PO Last administered on 08/30/18 09:57; Admin Dose 20 MG; Start 08/29/18 at 09:00 Pregabalin (Lyrica) 300 mg BID PO ; Start 08/28/18 at 21:00; Status Hold Terazosin HCl (Hytrin) 2 mg HS PO ; Start 08/28/18 at 21:00 Miscellaneous Information 1 ea NOTE XX ; Start 08/28/18 at 16:00 Glucose (Glutose) 15 gm Q15M PRN PO DECREASED GLUCOSE; Start 08/28/18 at 16:00 Glucose (Glutose) 22.5 gm Q15M PRN PO DECREASED GLUCOSE; Start 08/28/18 at 16:00 Dextrose (D50w Syringe) 25 ml Q15M PRN IV DECREASED GLUCOSE; Start 08/28/18 at 16:00 Dextrose (D50w Syringe) 50 ml Q15M PRN IV DECREASED GLUCOSE; Start 08/28/18 at 16:00 Glucagon (Glucagen) 1 mg Q15M PRN IM DECREASED GLUCOSE; Start 08/28/18 at 16:00 Glucose (Glutose) 15 gm Q15M PRN BUCCAL DECREASED GLUCOSE; Start 08/28/18 at 16:00 Hydralazine HCl (Apresoline) 10 mg Q4H PRN IV SBP ABOVE 170 Last administered on 08/29/18at 17:35; Admin Dose 10 MG; Start 08/28/18 at 21:00 Pantoprazole (Protonix Iv) 40 mg DAILY@06 IV Last administered on 08/30/18 05:09; Admin Dose 40 MG; Start 08/29/18 at 06:00 Insulin Aspart (Novolog Insulin Pen) NOVOLOG *MODERATE* ALGORI... Q4 SC Last administered on 08/30/18 10:06; Admin Dose 4 UNIT; Start 08/29/18 at 09:00 Methylprednisolone Sodium Succinate (Solu-Medrol) 60 mg Q8 IV Last administered on 08/30/18 05:10; Admin Dose 60 MG; Start 08/29/18 at 14:00 Albuterol/ Ipratropium (Duoneb) 3 ml Q6HWA RESP THERAPY HHN Last administered on 08/29/18at 13:33; Admin Dose 3 ML; Start 08/29/18 at 14:00 Nicotine (Nicoderm 21 Mg/ 24hr) 1 patch DAILY TRANSDERM Last administered on 08/29/18at 11:30; Admin Dose 1 PATCH; Start 08/29/18 at 11:30 Aspirin (Aspirin) 81 mg DAILY PO Last administered on 08/30/18at 09:55; Admin Dose 81 MG; Start 08/30/18 at 09:00 Clonidine HCl (Catapres-Tts 1 Patch) 1 patch Q7D TRANSDERM Last administered on 08/29/18at 14:15; Admin Dose 1 PATCH; Start 08/29/18 at 13:30 Pregabalin (Lyrica) 300 mg ONCE PO Last administered on 08/30/18at 09:55; Admin Dose 300 MG; Start 08/30/18 at 08:30; Stop 08/30/18 at 12:00 Morphine Sulfate (morphine SULFATE (PF)) 1 mg Q4H PRN IV SEVERE PAIN LEVEL 7- 10; Start 08/30/18 at 13:00; Status UNV Sodium Polystyrene Sulfonate (Kayexalate) 15 gm ONCE ONCE PO ; Start 08/30/18 at 12:00; Stop 08/30/18 at 12:01; Status UNV JAIME RODRÍGUEZ Aug 30, 2018 11:47
[2018-08-30] MEDS ORDERED: NA POLYST SULFON 15 GM/60 ML BTL PO ONE (12:00)
[2018-08-30] MEDS ORDERED: morphine SULFATE/PF (2 MG/2 ML) SYG IV PRN (12:00)
--- NOTE | 2018-08-30 12:47 | CONS ---
Date/Time of Note Date/Time of Note DATE: 08/30/18 TIME: 12:42 Assessment/Plan Assessment/Plan Hospital Course IMPRESSION: 1. Positive troponin, likely a type 2 demand infarct in the setting of respiratory distress, respiratory failure.-slowly downtrending 2. Hypertension. 3. Possible congestive heart failure with chest x-ray, diastolic by most recent echo July 2018, revealing a preserved EF of 60-65%, acute on chronic. 4. Hypercarbic respiratory failure. 5. Altered mental state. 6. Anemia. 7. Renal insufficiency. 8. Peripheral arterial disease, status post right lower extremity amputation. Recc: -continue asa/statini -continue zestril/coreg/norvasc/clonidine TTS -Follow BP closely -trend cardiac enzymes Result Diagram: 08/30/184 08/30/18 0434 Results 24hrs Laboratory Tests Test 08/29/18 12:47 08/29/18 13:43 08/29/18 16:42 08/29/18 19:34 Bedside Glucose 116 129 Sodium Level 142 Potassium Level 5.3 H Chloride Level 110 Carbon Dioxide 27 Level Anion Gap 5 Blood Urea 20 Nitrogen Creatinine 1.25 H Est Glomerular Filtrat Rate mL/min Glucose Level 112 Calcium Level 8.8 Blood Gas Blood arterial Specimen Source Arterial Blood 08/29/2018 8:30 Date Drawn :10 PM Arterial Blood 7.454 H pH (Temp corrected ) Arterial Blood 31.5 L pCO2 (Temp correct) Arterial Blood 111.8 H pO2 (Temp corrected ) Arterial Blood 21.6 L HCO3 Arterial Blood -1.7 Base Excess Arterial Blood 97.8 Oxygen Saturati on [place] Test ACCEPTAB Arterial Blood Right Radial Gas Puncture Site Arterial 0.1 Blood Carboxyhe moglobin Arterial Blood 0.2 Methemoglobin Blood Gas A-a 130.0 H O2 Differential Oxyhemoglobin 97.5 Percent Blood Gas 37.0 Temperature Blood Gas 20 Actual Respiration Rat e Blood Gas NASAL CANNULA Modality FiO2 39.0 Blood Gas Notified Whom Blood Gas 08/29/2018 8:41 Notified Time :44 PM Test 08/29/18 21:24 08/30/18 01:30 08/30/18 04:34 08/30/18 05:08 Bedside Glucose 183 143 161 White Blood 2.7 #L Count Red Blood Count 2.98 L Hemoglobin 8.9 L Hematocrit 27.9 L Mean 93.6 Corpuscular Volume Mean 29.9 Corpuscular Hemoglobin Mean 31.9 L Corpuscular Hemoglobin Conc ent Red Cell 14.6 H Distribution Width Platelet Count 158 Mean Platelet 12.6 H Volume Immature 1.100 H Granulocytes % Neutrophils % 75.5 Lymphocytes % 20.4 Monocytes % 3.0 Eosinophils % 0.0 Basophils % 0.0 Nucleated Red 0.0 Blood Cells % Immature 0.030 Granulocytes # Neutrophils # 2.0 Lymphocytes # 0.6 L Monocytes # 0.1 L Eosinophils # 0.0 Basophils # 0.0 Nucleated Red 0.0 Blood Cells # Sodium Level 144 Potassium Level 5.5 H Chloride Level 114 H Carbon Dioxide 21 Level Anion Gap 9 Blood Urea 26 H Nitrogen Creatinine 1.32 H Est Glomerular Filtrat Rate mL/min Glucose Level 145 Calcium Level 9.2 Troponin I 0.145 *H Test 08/30/18 09:38 Bedside Glucose 190 Consultation Date/Type/Reason Admit Date/Time Aug 28, 2018 at 14:35 Initial Consult Date 08/29/18 Type of Consult cardiology Reason for Consultation positive troponin Requesting Provider: JAIME RODRÍGUEZ Exam/Review of Systems Vital Signs Vitals Vital Signs Date Temp Pulse Resp B/P (MAP) Pulse Ox O2 O2 Flow FiO2 Time Delivery Rate 08/30/18 98.7 76 11 139/51 100 Nasal 12:00 (80) Cannula 08/30/18 4.0 10:43 08/29/18 40 19:28 Intake and Output 08/29/18 08/29/18 08/30/18 1515:00 23:00 07:00 IntakeIntake Total 120 ml OutputOutput Total 350 ml 705 ml 234 ml BalanceBalance -350 ml -705 ml -114 ml Exam Review of Systems: CONSTITUTIONAL: No fevers, chills. PULMONARY: No sob CARDIOVASCULAR: No chest pain/palpitations GASTROINTESTINAL: No nausea/vomiting. GENITOURINARY: No hematuria/dysuria. MUSCULOSKELETAL: No myagias/arthalgias. PSYCHIATRIC: The patient denies depression. NEUROLOGIC: confused Constitutional: alert Psych: confusion Head: normocephalic ENMT: mucosa pink and moist Neck: supple, jvd (8 cm water) Respiratory: diminished breath sounds (at bases/B) Cardiovascular: regular rate and rhythm Gastrointestinal: soft, non-tender Musculoskeletal: muscle weakness (generalized) Extremities: edema (none) Medications Medications Current Medications IV Flush (NS 3 ml) 3 ml PER PROTOCOL IV ; Start 08/28/18 at 15:00 Ondansetron HCl (Zofran Inj) 4 mg Q6H PRN IV NAUSEA AND/OR VOMITING Last administered on 08/29/18at 00:41; Admin Dose 4 MG; Start 08/28/18 at 15:00 Heparin Sodium (Porcine) (Heparin (5000 Units/1ml)) 5,000 unit Q12 SC Last administered on 08/30/18 10:04; Admin Dose 5,000 UNIT; Start 08/28/18 at 21:00 Senna (Senokot) 2 tab BID PO Last administered on 08/30/18 09:56; Admin Dose 2 TAB; Start 08/28/18 at 21:00 Amlodipine Besylate (Norvasc) 10 mg DAILY PO Last administered on 08/30/18 09:56; Admin Dose 10 MG; Start 08/29/18 at 09:00 Atorvastatin Calcium (Lipitor) 20 mg QHS PO ; Start 08/28/18 at 21:00 Carvedilol (Coreg) 6.25 mg BID PO Last administered on 08/30/18 09:56; Admin Dose 6.25 MG; Start 08/28/18 at 21:00 Hydralazine HCl (Apresoline) 10 mg BID PO Last administered on 08/30/18 09:55; Admin Dose 10 MG; Start 08/28/18 at 21:00 Lisinopril (Zestril) 20 mg DAILY PO Last administered on 08/30/18 09:57; Admin Dose 20 MG; Start 08/29/18 at 09:00 Pregabalin (Lyrica) 300 mg BID PO ; Start 08/28/18 at 21:00 Terazosin HCl (Hytrin) 2 mg HS PO ; Start 08/28/18 at 21:00 Miscellaneous Information 1 ea NOTE XX ; Start 08/28/18 at 16:00 Glucose (Glutose) 15 gm Q15M PRN PO DECREASED GLUCOSE; Start 08/28/18 at 16:00 Glucose (Glutose) 22.5 gm Q15M PRN PO DECREASED GLUCOSE; Start 08/28/18 at 16:00 Dextrose (D50w Syringe) 25 ml Q15M PRN IV DECREASED GLUCOSE; Start 08/28/18 at 16:00 Dextrose (D50w Syringe) 50 ml Q15M PRN IV DECREASED GLUCOSE; Start 08/28/18 at 16:00 Glucagon (Glucagen) 1 mg Q15M PRN IM DECREASED GLUCOSE; Start 08/28/18 at 16:00 Glucose (Glutose) 15 gm Q15M PRN BUCCAL DECREASED GLUCOSE; Start 08/28/18 at 16:00 Hydralazine HCl (Apresoline) 10 mg Q4H PRN IV SBP ABOVE 170 Last administered on 08/29/18at 17:35; Admin Dose 10 MG; Start 08/28/18 at 21:00 Pantoprazole (Protonix Iv) 40 mg DAILY@06 IV Last administered on 08/30/18at 05:09; Admin Dose 40 MG; Start 08/29/18 at 06:00 Insulin Aspart (Novolog Insulin Pen) NOVOLOG *MODERATE* ALGORI... Q4 SC Last administered on 08/30/18at 10:06; Admin Dose 4 UNIT; Start 08/29/18 at 09:00 Albuterol/ Ipratropium (Duoneb) 3 ml Q6HWA RESP THERAPY HHN Last administered on 08/29/18at 13:33; Admin Dose 3 ML; Start 08/29/18 at 14:00 Nicotine (Nicoderm 21 Mg/ 24hr) 1 patch DAILY TRANSDERM Last administered on 08/29/18at 11:30; Admin Dose 1 PATCH; Start 08/29/18 at 11:30 Aspirin (Aspirin) 81 mg DAILY PO Last administered on 08/30/18at 09:55; Admin Dose 81 MG; Start 08/30/18 at 09:00 Clonidine HCl (Catapres-Tts 1 Patch) 1 patch Q7D TRANSDERM Last administered on 08/29/18at 14:15; Admin Dose 1 PATCH; Start 08/29/18 at 13:30 Morphine Sulfate (morphine SULFATE (PF)) 1 mg Q4H PRN IV SEVERE PAIN LEVEL 7-10 Last administered on 08/30/18at 11:48; Admin Dose 1 MG; Start 08/30/18 at 12:00 Methylprednisolone Sodium Succinate (Solu-Medrol) 40 mg Q12 IV ; Start 08/30/18 at 21:00 HAL KING Aug 30, 2018 12:47
--- NOTE | 2018-08-30 13:30 | NUR ---
PT TRANSFERRED PT WAS TRANSFERRED TO ROOM 529 FOR LOWER LEVEL OF CARE. PT WAS VPACED, HEMODYNAMICALLY STABLE, AND IN NO APPARENT RESPIRATORY. PT IS ON 5.0LO2 NC. PT COULD BE HOSTILE DURING COURSE OF STAY. MD RODRÍGUEZ MADE AWARE OF K LEVELS, ORDERS RECEIVED. ALL OF PT NEED WERE CARED FOR. ENDORSING CARE TO SELWYN VALENTIN ON TELE. SELWYN VALENTIN WAS GIVEN REPORT PRIOR TO TRANSFER.
--- NOTE | 2018-08-30 17:14 | CONS ---
Date/Time of Note Date/Time of Note DATE: 08/30/18 TIME: 17:08 Assessment/Plan Assessment/Plan Assessment/Plan Altered mental status, encephalopathy resulting in hypoxic hypercapnia We will follow centrally active medications with exception of a low dose as needed opioid. 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 Adult onset type 2 diabete Education is being adjusted as per primary care physician Hypertension CKD Resolving with fluid resuscitation Anemia of chronic disease Fluid and electrolyte abnormalities being treated with fluid resuscitation and correction of electrolytes. It is very similar to her prior hospitalization and I will call her son to reestablish her DNR CODE STATUS. Last hospitalization patient's son agreed to a hospice evaluation. Patient qualifies because she has had 9 hospitalization in her age group secondary to respiratory failure. There are multiple centrally acting medications that were prescribed to her prior to the last hospitalization [facility]. I am not 100% certain those medications were transferred at discharge whether not they were restarted again after patient's last discharge from [facility]. Result Diagram: 08/30/18 0434 08/30/18 0434 Results 24hrs Laboratory Tests Test 08/29/18 19:34 08/29/18 21:24 08/30/18 01:30 08/30/18 04:34 Blood Gas Blood arterial Specimen Source Arterial Blood 08/29/2018 8:30:1 Date Drawn 0 PM Arterial Blood pH 7.454 H (Temp corrected) Arterial Blood 31.5 L pCO2 (Temp correct) Arterial Blood 111.8 H pO2 (Temp corrected) Arterial Blood 21.6 L HCO3 Arterial Blood -1.7 Base Excess Arterial Blood 97.8 Oxygen Saturation Humble Test ACCEPTAB Arterial Blood Right Radial Gas Puncture Site Arterial 0.1 Blood Carboxyhemo globin Arterial Blood 0.2 Methemoglobin Blood Gas A-a O2 130.0 H Differential Oxyhemoglobin 97.5 Percent Blood Gas 37.0 Temperature Blood Gas Actual 20 Respiration Rate Blood Gas NASAL CANNULA Modality FiO2 39.0 Blood Gas Notified Whom Blood Gas 08/29/2018 8:41:4 Notified Time 4 PM Bedside Glucose 183 143 White Blood Count 2.7 #L Red Blood Count 2.98 L Hemoglobin 8.9 L Hematocrit 27.9 L Mean Corpuscular 93.6 Volume Mean Corpuscular 29.9 Hemoglobin Mean Corpuscular 31.9 L Hemoglobin Concen t Red Cell 14.6 H Distribution Width Platelet Count 158 Mean Platelet 12.6 H Volume Immature 1.100 H Granulocytes % Neutrophils % 75.5 Lymphocytes % 20.4 Monocytes % 3.0 Eosinophils % 0.0 Basophils % 0.0 Nucleated Red 0.0 Blood Cells % Immature 0.030 Granulocytes # Neutrophils # 2.0 Lymphocytes # 0.6 L Monocytes # 0.1 L Eosinophils # 0.0 Basophils # 0.0 Nucleated Red 0.0 Blood Cells # Sodium Level 144 Potassium Level 5.5 H Chloride Level 114 H Carbon Dioxide 21 Level Anion Gap 9 Blood Urea 26 H Nitrogen Creatinine 1.32 H Est Glomerular Filtrat Rate mL/min Glucose Level 145 Calcium Level 9.2 Troponin I 0.145 *H Test 08/30/18 05:08 08/30/18 09:38 08/30/18 13:41 Bedside Glucose 161 190 202 Consultation Date/Type/Reason Admit Date/Time Aug 28, 2018 at 14:35 Hx of Present Illness 77-year-old female who is well-known to me prior hospitalizations was admitted to [facility] altered in respiratory failure with hypoxic hypercapnia. Patient's last hospitalization is similar to this when whereby with holding her opioids and other centrally acting medication she woke up at however during this time patient is being treated for possible underlying infection worked up for CVA. She is current out of the intensive care unit is amnestic to the cause of her being transferred to the hospital. Other comorbid medical problems include type 2 diabetes, peripheral vascular disease, hypertension, fluid and electrolyte abnormalities, mild to moderate dementia. During her last hospitalization I had extensive conversations with her son because patient has been admitted to the hospital 8 times prior to this within a short period of time my suggestion was for patient to be referred to hospice care at the time of discharge. Patient was at high risk of rehospitalization and eventually would require intubation. After extensive conversation with the son on 2 occasions patient's CODE STATUS was changed to DO NOT RESUSCITATE then. Patient is not a viable historian Past Medical History Medical History: coronary artery disease, high cholesterol Medications Current Medications IV Flush (NS 3 ml) 3 ml PER PROTOCOL IV ; Start 08/28/18 at 15:00 Ondansetron HCl (Zofran Inj) 4 mg Q6H PRN IV NAUSEA AND/OR VOMITING Last administered on 08/29/18at 00:41; Admin Dose 4 MG; Start 08/28/18 at 15:00 Heparin Sodium (Porcine) (Heparin (5000 Units/1ml)) 5,000 unit Q12 SC Last administered on 08/30/18 10:04; Admin Dose 5,000 UNIT; Start 08/28/18 at 21:00 Senna (Senokot) 2 tab BID PO Last administered on 08/30/18 09:56; Admin Dose 2 TAB; Start 08/28/18 at 21:00 Amlodipine Besylate (Norvasc) 10 mg DAILY PO Last administered on 08/30/18 09:56; Admin Dose 10 MG; Start 08/29/18 at 09:00 Atorvastatin Calcium (Lipitor) 20 mg QHS PO ; Start 08/28/18 at 21:00 Carvedilol (Coreg) 6.25 mg BID PO Last administered on 08/30/18 09:56; Admin Dose 6.25 MG; Start 08/28/18 at 21:00 Hydralazine HCl (Apresoline) 10 mg BID PO Last administered on 08/30/18 09:55; Admin Dose 10 MG; Start 08/28/18 at 21:00 Lisinopril (Zestril) 20 mg DAILY PO Last administered on 08/30/18 09:57; Admin Dose 20 MG; Start 08/29/18 at 09:00 Pregabalin (Lyrica) 300 mg BID PO ; Start 08/28/18 at 21:00 Terazosin HCl (Hytrin) 2 mg HS PO ; Start 08/28/18 at 21:00 Miscellaneous Information 1 ea NOTE XX ; Start 08/28/18 at 16:00 Glucose (Glutose) 15 gm Q15M PRN PO DECREASED GLUCOSE; Start 08/28/18 at 16:00 Glucose (Glutose) 22.5 gm Q15M PRN PO DECREASED GLUCOSE; Start 08/28/18 at 16:00 Dextrose (D50w Syringe) 25 ml Q15M PRN IV DECREASED GLUCOSE; Start 08/28/18 at 16:00 Dextrose (D50w Syringe) 50 ml Q15M PRN IV DECREASED GLUCOSE; Start 08/28/18 at 16:00 Glucagon (Glucagen) 1 mg Q15M PRN IM DECREASED GLUCOSE; Start 08/28/18 at 16:00 Glucose (Glutose) 15 gm Q15M PRN BUCCAL DECREASED GLUCOSE; Start 08/28/18 at 16:00 Hydralazine HCl (Apresoline) 10 mg Q4H PRN IV SBP ABOVE 170 Last administered on 08/29/18at 17:35; Admin Dose 10 MG; Start 08/28/18 at 21:00 Pantoprazole (Protonix Iv) 40 mg DAILY@06 IV Last administered on 08/30/18at 05:09; Admin Dose 40 MG; Start 08/29/18 at 06:00 Insulin Aspart (Novolog Insulin Pen) NOVOLOG *MODERATE* ALGORI... Q4 SC Last administered on 08/30/18at 14:07; Admin Dose 4 UNIT; Start 08/29/18 at 09:00 Albuterol/ Ipratropium (Duoneb) 3 ml Q6HWA RESP THERAPY HHN Last administered on 08/29/18at 13:33; Admin Dose 3 ML; Start 08/29/18 at 14:00 Nicotine (Nicoderm 21 Mg/ 24hr) 1 patch DAILY TRANSDERM Last administered on at 11:30; Admin Dose 1 PATCH; Start 08/29/18 at 11:30 Aspirin (Aspirin) 81 mg DAILY PO Last administered on 08/30/18at 09:55; Admin Dose 81 MG; Start 08/30/18 at 09:00 Clonidine HCl (Catapres-Tts 1 Patch) 1 patch Q7D TRANSDERM Last administered on 08/29/18at 14:15; Admin Dose 1 PATCH; Start 08/29/18 at 13:30 Morphine Sulfate (morphine SULFATE (PF)) 1 mg Q4H PRN IV SEVERE PAIN LEVEL 7-10 Last administered on 08/30/18at 11:48; Admin Dose 1 MG; Start 08/30/18 at 12:00 Methylprednisolone Sodium Succinate (Solu-Medrol) 40 mg Q12 IV ; Start 08/30/18 at 21:00 Allergies: Coded Allergies: Macrolide Antibiotics (Unverified Allergy, Unknown, 08/03/18) erythromycin base (Unverified Allergy, Unknown, 08/03/18) vancomycin (Unverified Allergy, Unknown, 08/03/18) Past Surgical History Past Surgical Hx: other Family History Significant Family History: COPD, diabetes, hypertension Social History Alcohol Use: none Smoking Status: Unknown if ever smoked Drug Use: none Exam/Review of Systems Vital Signs Vitals Vital Signs Date Temp Pulse Resp B/P (MAP) Pulse Ox O2 O2 Flow FiO2 Time Delivery Rate 08/30/18 68 16:51 08/30/18 Nasal 4.0 16:01 Cannula 08/30/18 98.2 12 145/67 98 13:54 (93) 08/29/18 40 19:28 Intake and Output 08/29/18 08/29/18 08/30/18 1515:00 23:00 07:00 IntakeIntake Total 120 ml OutputOutput Total 350 ml 705 ml 264 ml BalanceBalance -350 ml -705 ml -144 ml Exam Constitutional: alert, well developed, obese Psych: anxiety, confusion Head: normocephalic, atraumatic; No lacerations, No hematomas, No other Eyes: nl conjunctiva, EOMI, nl lids, nl sclera, PERRL; No icteric, No fundi, disc, No other Respiratory: clear to auscultation, normal air movement; No congested cough, No crackles/rales, No diminished breath sounds, No intercostal retraction, No labored breathing, No respirations, No tactile fremitus, No wheezing, No other Cardiovascular: regular rate and rhythm, nl pulses; No bruits, No diastolic murmur, No edema, No gallop, No irregular rhythm, No jugular venous distention (JVD), No murmurs/extra sounds, No rub, No systolic murmur, No S3, No S4, No other Extremities: normal pulses; No calf tenderness, No cyanosis, No clubbing, No edema, No pitting pedal edema, No palpable cord, No tenderness, No other Neurological: COMPUTER REPAIRER II-XII intact, nl mental status, nl speech, nl strength, confused Medications Medications Current Medications IV Flush (NS 3 ml) 3 ml PER PROTOCOL IV ; Start 08/28/18 at 15:00 Ondansetron HCl (Zofran Inj) 4 mg Q6H PRN IV NAUSEA AND/OR VOMITING Last administered on 08/29/18at 00:41; Admin Dose 4 MG; Start 08/28/18 at 15:00 Heparin Sodium (Porcine) (Heparin (5000 Units/1ml)) 5,000 unit Q12 SC Last administered on 08/30/18 10:04; Admin Dose 5,000 UNIT; Start 08/28/18 at 21:00 Senna (Senokot) 2 tab BID PO Last administered on 08/30/18 09:56; Admin Dose 2 TAB; Start 08/28/18 at 21:00 Amlodipine Besylate (Norvasc) 10 mg DAILY PO Last administered on 08/30/18 09:56; Admin Dose 10 MG; Start 08/29/18 at 09:00 Atorvastatin Calcium (Lipitor) 20 mg QHS PO ; Start 08/28/18 at 21:00 Carvedilol (Coreg) 6.25 mg BID PO Last administered on 08/30/18 09:56; Admin Dose 6.25 MG; Start 08/28/18 at 21:00 Hydralazine HCl (Apresoline) 10 mg BID PO Last administered on 08/30/18 09:55; Admin Dose 10 MG; Start 08/28/18 at 21:00 Lisinopril (Zestril) 20 mg DAILY PO Last administered on 08/30/18 09:57; Admin Dose 20 MG; Start 08/29/18 at 09:00 Pregabalin (Lyrica) 300 mg BID PO ; Start 08/28/18 at 21:00 Terazosin HCl (Hytrin) 2 mg HS PO ; Start 08/28/18 at 21:00 Miscellaneous Information 1 ea NOTE XX ; Start 08/28/18 at 16:00 Glucose (Glutose) 15 gm Q15M PRN PO DECREASED GLUCOSE; Start 08/28/18 at 16:00 Glucose (Glutose) 22.5 gm Q15M PRN PO DECREASED GLUCOSE; Start 08/28/18 at 16:00 Dextrose (D50w Syringe) 25 ml Q15M PRN IV DECREASED GLUCOSE; Start 08/28/18 at 16:00 Dextrose (D50w Syringe) 50 ml Q15M PRN IV DECREASED GLUCOSE; Start 08/28/18 at 16:00 Glucagon (Glucagen) 1 mg Q15M PRN IM DECREASED GLUCOSE; Start 08/28/18 at 16:00 Glucose (Glutose) 15 gm Q15M PRN BUCCAL DECREASED GLUCOSE; Start 08/28/18 at 16:00 Hydralazine HCl (Apresoline) 10 mg Q4H PRN IV SBP ABOVE 170 Last administered on 08/29/18at 17:35; Admin Dose 10 MG; Start 08/28/18 at 21:00 Pantoprazole (Protonix Iv) 40 mg DAILY@06 IV Last administered on 08/30/18at 05:09; Admin Dose 40 MG; Start 08/29/18 at 06:00 Insulin Aspart (Novolog Insulin Pen) NOVOLOG *MODERATE* ALGORI... Q4 SC Last administered on 08/30/18at 14:07; Admin Dose 4 UNIT; Start 08/29/18 at 09:00 Albuterol/ Ipratropium (Duoneb) 3 ml Q6HWA RESP THERAPY HHN Last administered on 08/29/18at 13:33; Admin Dose 3 ML; Start 08/29/18 at 14:00 Nicotine (Nicoderm 21 Mg/ 24hr) 1 patch DAILY TRANSDERM Last administered on 08/29/18at 11:30; Admin Dose 1 PATCH; Start 08/29/18 at 11:30 Aspirin (Aspirin) 81 mg DAILY PO Last administered on 08/30/18at 09:55; Admin Dose 81 MG; Start 08/30/18 at 09:00 Clonidine HCl (Catapres-Tts 1 Patch) 1 patch Q7D TRANSDERM Last administered on 08/29/18at 14:15; Admin Dose 1 PATCH; Start 08/29/18 at 13:30 Morphine Sulfate (morphine SULFATE (PF)) 1 mg Q4H PRN IV SEVERE PAIN LEVEL 7-10 Last administered on 08/30/18at 11:48; Admin Dose 1 MG; Start 08/30/18 at 12:00 Methylprednisolone Sodium Succinate (Solu-Medrol) 40 mg Q12 IV ; Start 08/30/18 at 21:00 CATHERINE CALDERON Aug 30, 2018 17:14
[2018-08-30] MEDS ORDERED: traMADol-APAP 37.5-325 1 TAB PO PRN (17:30)
--- NOTE | 2018-08-30 18:18 | NUR ---
ADMISSION TO TELEMETRY PATIENT IS ADMITTED TO TELEMETRY. VPACED AT 60'S. TROPONIN ELEVATED. DR KING AWARE. WOUND PICTURES TAKEN. WILL CONTINUE TO MONITOR.
--- NOTE | 2018-08-30 19:30 | NUR ---
PT NOTES : PT evaluation order were received , and medical chart review were completed . Attempted to see pt for skilled PT evaluation and tx but pt refuse today , stated that she feel fatigue and not ready today . will follow up tomorrow.
[2018-08-30] MEDS: TERAZOSIN 2 MG CAP PO SCH (20:26)
[2018-08-30] MEDS: ATORVASTATIN 20 MG TAB PO SCH (20:27)
[2018-08-30] MEDS: METHYLPREDNISOLONE 40 MG INJ IV SCH (21:23)
[2018-08-30] MEDS: PREGABALIN 100 MG CAP PO SCH (21:27)
[2018-08-30] MEDS: DIPHENHYDRAMINE 50 MG INJ IV PRN (23:55)
[2018-08-31] VITALS (11 sets, daily range): BP systolic 114–178; BP diastolic 57–85; PULSE 55–73; RESP 17–20
[2018-08-31] MEDS: INSULIN ASPART [NOVOLOG] 3 ML PEN SC SCH ×8 (01:11→20:58)
[2018-08-31] MEDS: PANTOPRAZOLE 40 MG INJ IV SCH (05:10)
--- NOTE | 2018-08-31 06:21 | NUR ---
EOSS: Pt. a/o x4. Hourly rounding completed. Call light within reach. Bed in lowest position. Bed bath given. Turned pt Q2H. Pt denied any pain upon my shift. Accucheck Q4H. Blood sugar above normal limits- insulin given. Pt. noncompliant with diet. All needs met and attended too. Will endorse continuity of care to day shift.
[2018-08-31] MEDS: ALBUTEROL/IPRATROPIUM (NEB) 3 ML AMP HHN SCH ×3 (07:53→20:40)
--- NOTE | 2018-08-31 08:39 | CONS ---
Date/Time of Note Date/Time of Note DATE: 08/31/18 TIME: 08:36 Assessment/Plan Assessment/Plan Assessment/Plan Assessment/Plan Altered mental status, encephalopathy resulting in hypoxic hypercapnia Now resolved fully awake alert cooperative To need to hold centrally active medications with exception of a low dose as n eeded opioid. 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 Adult onset type 2 diabete Education is being adjusted as per primary care physician Hypertension CKD Resolving with fluid resuscitation Anemia of chronic disease Fluid and electrolyte abnormalities being treated with fluid resuscitation and correction of electrolytes. Low-dose opioids as needed, very conservative use of any other centrally acting medications including gabapentin Result Diagram: 08/31/18 0520 08/31/1820 Results 24hrs Laboratory Tests Test 08/30/18 09:38 08/30/18 13:41 08/30/18 17:25 08/30/18 20:38 Bedside Glucose 190 202 294 H 240 H Test 08/31/18 01:07 08/31/18 05:12 08/31/18 05:20 08/31/18 08:19 Bedside Glucose 260 H 256 H 243 H White Blood Count 5.3 # Red Blood Count 2.95 L Hemoglobin 8.8 L Hematocrit 27.7 L Mean Corpuscular Volume 93.9 Mean Corpuscular 29.8 Hemoglobin Mean Corpuscular 31.8 L Hemoglobin Concent Red Cell Distribution 14.8 H Width Platelet Count 164 Mean Platelet Volume 12.5 H Immature Granulocytes % 0.600 H Neutrophils % 84.4 H Lymphocytes % 11.0 L Monocytes % 4.0 Eosinophils % 0.0 Basophils % 0.0 Nucleated Red Blood 0.0 Cells % Immature Granulocytes # 0.030 Neutrophils # 4.5 Lymphocytes # 0.6 L Monocytes # 0.2 L Eosinophils # 0.0 Basophils # 0.0 Nucleated Red Blood 0.0 Cells # Sodium Level 138 Potassium Level 5.1 Chloride Level 107 Carbon Dioxide Level 26 Anion Gap 5 Blood Urea Nitrogen 34 H Creatinine 1.46 H Est Glomerular Filtrat Rate mL/min Glucose Level 248 #H Calcium Level 9.1 Consultation Date/Type/Reason Admit Date/Time Aug 28, 2018 at 14:35 Hx of Present Illness 77-year-old female who is well-known to me prior hospitalizations was admitted to [facility] altered in respiratory failure with hypoxic hypercapnia. Patient's last hospitalization is similar to this when whereby with holding her opioids and other centrally acting medication she woke up at however during this time patient is being treated for possible underlying infection worked up for CVA. She is current out of the intensive care unit is amnestic to the cause of her being transferred to the hospital. Other comorbid medical problems include type 2 diabetes, peripheral vascular disease, hypertension, fluid and electrolyte abnormalities, mild to moderate dementia. During her last hospitalization I had extensive conversations with her son because patient has been admitted to the hospital 8 times prior to this within a short period of time my suggestion was for patient to be referred to hospice care at the time of discharge. Patient was at high risk of rehospitalization and eventually would require intubation. After extensive conversation with the son on 2 occasions patient's CODE STATUS was changed to DO NOT RESUSCITATE then. August 31, 2018 No new problems occurring overnight, no calls from nursing staff concerning a dditional pain control medications anxiolytics or sleeping meds. Past Medical History Medical History: coronary artery disease, high cholesterol Medications Current Medications IV Flush (NS 3 ml) 3 ml PER PROTOCOL IV ; Start 08/28/18 at 15:00 Ondansetron HCl (Zofran Inj) 4 mg Q6H PRN IV NAUSEA AND/OR VOMITING Last admin istered on 08/29/18at 00:41; Admin Dose 4 MG; Start 08/28/18 at 15:00 Heparin Sodium (Porcine) (Heparin (5000 Units/1ml)) 5,000 unit Q12 SC Last administered on 08/30/18 20:43; Admin Dose 5,000 UNIT; Start 08/28/18 at 21:00 Senna (Senokot) 2 tab BID PO Last administered on 08/30/18 20:27; Admin Dose 2 TAB; Start 08/28/18 at 21:00 Amlodipine Besylate (Norvasc) 10 mg DAILY PO Last administered on 08/30/18 09:56; Admin Dose 10 MG; Start 08/29/18 at 09:00 Atorvastatin Calcium (Lipitor) 20 mg QHS PO Last administered on 08/30/18 20:27; Admin Dose 20 MG; Start 08/28/18 at 21:00 Carvedilol (Coreg) 6.25 mg BID PO Last administered on 08/30/18 20:27; Admin Dose 6.25 MG; Start 08/28/18 at 21:00 Hydralazine HCl (Apresoline) 10 mg BID PO Last administered on 08/30/18 20:28; Admin Dose 10 MG; Start 08/28/18 at 21:00 Lisinopril (Zestril) 20 mg DAILY PO Last administered on 08/30/18 09:57; Admin Dose 20 MG; Start 08/29/18 at 09:00 Terazosin HCl (Hytrin) 2 mg HS PO Last administered on 08/30/18 20:26; Admin Dose 2 MG; Start 08/28/18 at 21:00 Miscellaneous Information 1 ea NOTE XX ; Start 08/28/18 at 16:00 Glucose (Glutose) 15 gm Q15M PRN PO DECREASED GLUCOSE; Start 08/28/18 at 16:00 Glucose (Glutose) 22.5 gm Q15M PRN PO DECREASED GLUCOSE; Start 08/28/18 at 16:00 Dextrose (D50w Syringe) 25 ml Q15M PRN IV DECREASED GLUCOSE; Start 08/28/18 at 16:00 Dextrose (D50w Syringe) 50 ml Q15M PRN IV DECREASED GLUCOSE; Start 08/28/18 at 16:00 Glucagon (Glucagen) 1 mg Q15M PRN IM DECREASED GLUCOSE; Start 08/28/18 at 16:00 Glucose (Glutose) 15 gm Q15M PRN BUCCAL DECREASED GLUCOSE; Start 08/28/18 at 16:00 Hydralazine HCl (Apresoline) 10 mg Q4H PRN IV SBP ABOVE 170 Last administered on 08/29/18at 17:35; Admin Dose 10 MG; Start 08/28/18 at 21:00 Pantoprazole (Protonix Iv) 40 mg DAILY@06 IV Last administered on 08/31/18 05:10; Admin Dose 40 MG; Start 08/29/18 at 06:00 Insulin Aspart (Novolog Insulin Pen) NOVOLOG *MODERATE* ALGORI... Q4 SC Last administered on 08/31/18 05:19; Admin Dose 6 UNIT; Start 08/29/18 at 09:00 Albuterol/ Ipratropium (Duoneb) 3 ml Q6HWA RESP THERAPY HHN Last administered on 08/31/18at 07:53; Admin Dose 3 ML; Start 08/29/18 at 14:00 Nicotine (Nicoderm 21 Mg/ 24hr) 1 patch DAILY TRANSDERM Last administered on 08/29/18at 11:30; Admin Dose 1 PATCH; Start 08/29/18 at 11:30 Aspirin (Aspirin) 81 mg DAILY PO Last administered on 08/30/18at 09:55; Admin Dose 81 MG; Start 08/30/18 at 09:00 Clonidine HCl (Catapres-Tts 1 Patch) 1 patch Q7D TRANSDERM Last administered on 08/29/18at 14:15; Admin Dose 1 PATCH; Start 08/29/18 at 13:30 Methylprednisolone Sodium Succinate (Solu-Medrol) 40 mg Q12 IV Last administered on 08/30/18at 21:23; Admin Dose 40 MG; Start 08/30/18 at 21:00 Pregabalin (Lyrica) 300 mg HS PO Last administered on 08/30/18at 21:27; Admin Dose 300 MG; Start 08/30/18 at 21:00 Tramadol HCl (Ultracet) 1 tab Q6H PRN PO MODERATE PAIN LEVEL 4-6; Start 08/30/18 at 17:30 Diphenhydramine HCl (Benadryl) 25 mg Q6 PRN IV SEDATION Last administered on 08/30/18at 23:55; Admin Dose 25 MG; Start 08/30/18 at 17:30 Allergies: Coded Allergies: Macrolide Antibiotics (Unverified Allergy, Unknown, 08/03/18) erythromycin base (Unverified Allergy, Unknown, 08/03/18) vancomycin (Unverified Allergy, Unknown, 08/03/18) Past Surgical History Past Surgical Hx: other Social History Alcohol Use: none Smoking Status: Unknown if ever smoked Drug Use: none Exam/Review of Systems Vital Signs Vitals Vital Signs Date Temp Pulse Resp B/P (MAP) Pulse Ox O2 O2 Flow FiO2 Time Delivery Rate 08/31/18 2.0 07:57 08/31/18 60 18 95 Nasal 32 07:54 Cannula 08/31/18 97.6 178/73 07:41 (108) Intake and Output 08/30/18 08/30/18 08/31/18 1515:00 23:00 07:00 IntakeIntake Total 860 ml 400 ml OutputOutput Total 150 ml 500 ml BalanceBalance 710 ml -100 ml Medications Medications Current Medications IV Flush (NS 3 ml) 3 ml PER PROTOCOL IV ; Start 08/28/18 at 15:00 Ondansetron HCl (Zofran Inj) 4 mg Q6H PRN IV NAUSEA AND/OR VOMITING Last administered on 08/29/18at 00:41; Admin Dose 4 MG; Start 08/28/18 at 15:00 Heparin Sodium (Porcine) (Heparin (5000 Units/1ml)) 5,000 unit Q12 SC Last administered on 08/30/18 20:43; Admin Dose 5,000 UNIT; Start 08/28/18 at 21:00 Senna (Senokot) 2 tab BID PO Last administered on 08/30/18 20:27; Admin Dose 2 TAB; Start 08/28/18 at 21:00 Amlodipine Besylate (Norvasc) 10 mg DAILY PO Last administered on 08/30/18 09:56; Admin Dose 10 MG; Start 08/29/18 at 09:00 Atorvastatin Calcium (Lipitor) 20 mg QHS PO Last administered on 08/30/18 20:27; Admin Dose 20 MG; Start 08/28/18 at 21:00 Carvedilol (Coreg) 6.25 mg BID PO Last administered on 08/30/18 20:27; Admin Dose 6.25 MG; Start 08/28/18 at 21:00 Hydralazine HCl (Apresoline) 10 mg BID PO Last administered on 08/30/18 20:28; Admin Dose 10 MG; Start 08/28/18 at 21:00 Lisinopril (Zestril) 20 mg DAILY PO Last administered on 08/30/18 09:57; Admin Dose 20 MG; Start 08/29/18 at 09:00 Terazosin HCl (Hytrin) 2 mg HS PO Last administered on 08/30/18 20:26; Admin Dose 2 MG; Start 08/28/18 at 21:00 Miscellaneous Information 1 ea NOTE XX ; Start 08/28/18 at 16:00 Glucose (Glutose) 15 gm Q15M PRN PO DECREASED GLUCOSE; Start 08/28/18 at 16:00 Glucose (Glutose) 22.5 gm Q15M PRN PO DECREASED GLUCOSE; Start 08/28/18 at 16:00 Dextrose (D50w Syringe) 25 ml Q15M PRN IV DECREASED GLUCOSE; Start 08/28/18 at 16:00 Dextrose (D50w Syringe) 50 ml Q15M PRN IV DECREASED GLUCOSE; Start 08/28/18 at 16:00 Glucagon (Glucagen) 1 mg Q15M PRN IM DECREASED GLUCOSE; Start 08/28/18 at 16:00 Glucose (Glutose) 15 gm Q15M PRN BUCCAL DECREASED GLUCOSE; Start 08/28/18 at 16:00 Hydralazine HCl (Apresoline) 10 mg Q4H PRN IV SBP ABOVE 170 Last administered on 08/29/18at 17:35; Admin Dose 10 MG; Start 08/28/18 at 21:00 Pantoprazole (Protonix Iv) 40 mg DAILY@06 IV Last administered on 08/31/18 05:10; Admin Dose 40 MG; Start 08/29/18 at 06:00 Insulin Aspart (Novolog Insulin Pen) NOVOLOG *MODERATE* ALGORI... Q4 SC Last administered on 08/31/18 05:19; Admin Dose 6 UNIT; Start 08/29/18 at 09:00 Albuterol/ Ipratropium (Duoneb) 3 ml Q6HWA RESP THERAPY HHN Last administered on 08/31/18 07:53; Admin Dose 3 ML; Start 08/29/18 at 14:00 Nicotine (Nicoderm 21 Mg/ 24hr) 1 patch DAILY TRANSDERM Last administered on 08/29/18at 11:30; Admin Dose 1 PATCH; Start 08/29/18 at 11:30 Aspirin (Aspirin) 81 mg DAILY PO Last administered on 08/30/18at 09:55; Admin Dose 81 MG; Start 08/30/18 at 09:00 Clonidine HCl (Catapres-Tts 1 Patch) 1 patch Q7D TRANSDERM Last administered on 08/29/18at 14:15; Admin Dose 1 PATCH; Start 08/29/18 at 13:30 Methylprednisolone Sodium Succinate (Solu-Medrol) 40 mg Q12 IV Last administered on 08/30/18 21:23; Admin Dose 40 MG; Start 08/30/18 at 21:00 Pregabalin (Lyrica) 300 mg HS PO Last administered on 1/1/19at 21:27; Admin Dose 300 MG; Start 08/30/18 at 21:00 Tramadol HCl (Ultracet) 1 tab Q6H PRN PO MODERATE PAIN LEVEL 4-6; Start 08/30/18 at 17:30 Diphenhydramine HCl (Benadryl) 25 mg Q6 PRN IV SEDATION Last administered on 08/30/18at 23:55; Admin Dose 25 MG; Start 08/30/18 at 17:30 CATHERINE CALDERON Aug 31, 2018 08:39
[2018-08-31] MEDS ORDERED: traMADol 50 MG TAB PO PRN (09:00)
[2018-08-31] MEDS: METHYLPREDNISOLONE 40 MG INJ IV SCH ×2 (09:40→20:49)
[2018-08-31] MEDS: ASPIRIN 81 MG TAB PO SCH (09:40)
[2018-08-31] MEDS: AMLODIPINE 10 MG TAB PO SCH (09:41)
[2018-08-31] MEDS: SENNA TAB PO SCH ×2 (09:41→20:49)
[2018-08-31] MEDS: LISINOPRIL 20 MG TAB PO SCH (09:42)
[2018-08-31] MEDS: HEPARIN 5,000 UNIT/1 ML VIAL SC SCH ×2 (09:51→20:58)
--- NOTE | 2018-08-31 09:52 | NUR ---
PT NOTE Received MD orders for PT evaluation. Attempted to evaluate pt in am; pt sleeping unable to be roused, even with sternal rub. Will follow up later if time permits. Communicated with RN.
[2018-08-31] MEDS: NICOTINE (21 MG/24 HR) PATCH TRANSDERM SCH (09:54)
--- NOTE | 2018-08-31 10:56 | PN ---
Date/Time of Note Date/Time of Note DATE: 08/31/18 TIME: 10:56 Assessment/Plan VTE Prophylaxis Risk score (from Nsg)>0 risk: 8 SCD applied (from Ns): No SCD contraindicated: other Pharmacological prophylaxis: heparin Lines/Catheters IV Catheter Type (from Nrsg): Saline Lock Urinary Cath still in place: Yes Reason Cath still needed: urinary retention Assessment/Plan Hospital Course S: Patient seen by pain management team this morning, initially was more awake, now a little bit more lethargic, but appears more uncooperative than anything else. O: VS - see below PE: Gen: Frail appearing elderly woman, lying in bed Eyes: Pupils nonreactive bilaterally. No icterus. HEENT: Pupils equal round reactive light, extraocular muscles are intact Neck: Supple Chest: Palpable L pacemaker pocket. Card: Regular rate and rhythm, no murmurs Pulm: Clear to auscultation bilaterally. Abd: Soft, nontender, nondistended. No palpable organomegaly Ext: R BKA. L leg well healed scar from surgical patellofemoral bypass A/P: 77 yo woman with peripheral arterial disease s/p amputation and chronic pain; pacemaker for heart block presents with acute encephalopathy and respiratory failure. #Encephalopathy -fully resolving, patient also respiratory failure - hypoxic and hypercapnic-both these possibly due to polypharmacy, especially opioids + fritz odiazepines, antispasmodics, and antidepressants. This is what we suspected last admission as well. Patient required BiPAP on admission, now off the last [address] on admission negative. -Continue to hold most of sedating meds for now, appreciate pain management consult -have instead kept her Lyrica, and added tramadol as needed. No opiates. -Follow-up recommendations from pulmonary team as well, patient also on low- dose IV steroids and breathing treatments -We will reconsult speech therapy team as well -Continue PT #NIDDM -sugars have been stable, now in the low to mid 200 range in the last 24 hours. A1c is 6.9. -Continue to hold home antiglycemics -Add low-dose aspart with meals, low-dose Lantus, continue insulin sliding scale. #Peripheral artery disease -patient also has history of right BKA - Cont statin - Cont lyrica for pain. - Continue to hold opioids for pain until mental status improves. #HTN -blood pressure presently stable. She also has history of pacemaker, and has slight elevation of troponins, per cardiology team secondary to a type 2 demand infarct in the setting of respiratory distress, slowly improving - Cont norvasc, beta willa - For now holding NANDINI inhibitor, as there is also some renal insufficiency as well #Hyperkalemia- Potassium level stable this morning at 5.1 - Monitor - If remains elevated will consider insulin or kayexalate. #History of PUD with recent GI bleed - Continue PPI #CKD- Cr currently a bit more elevated this morning. - Avoid nephrotoxins, renally dose meds when indicated Result Diagram: 08/31/18 0520 08/31/18 0520 Results 24hrs Laboratory Tests Test 08/30/18 13:41 08/30/18 17:25 08/30/18 20:38 08/31/18 01:07 Bedside Glucose 202 294 H 240 H 260 H Test 08/31/18 05:12 08/31/18 05:20 08/31/18 07:48 08/31/18 08:19 Bedside Glucose 256 H 243 H White Blood Count 5.3 # Red Blood Count 2.95 L Hemoglobin 8.8 L Hematocrit 27.7 L Mean Corpuscular Volume 93.9 Mean Corpuscular 29.8 Hemoglobin Mean Corpuscular 31.8 L Hemoglobin Concent Red Cell Distribution 14.8 H Width Platelet Count 164 Mean Platelet Volume 12.5 H Immature Granulocytes % 0.600 H Neutrophils % 84.4 H Lymphocytes % 11.0 L Monocytes % 4.0 Eosinophils % 0.0 Basophils % 0.0 Nucleated Red Blood 0.0 Cells % Immature Granulocytes # 0.030 Neutrophils # 4.5 Lymphocytes # 0.6 L Monocytes # 0.2 L Eosinophils # 0.0 Basophils # 0.0 Nucleated Red Blood 0.0 Cells # Sodium Level 138 Potassium Level 5.1 Chloride Level 107 Carbon Dioxide Level 26 Anion Gap 5 Blood Urea Nitrogen 34 H Creatinine 1.46 H Est Glomerular Filtrat Rate mL/min Glucose Level 248 #H Calcium Level 9.1 Troponin I 0.128 *H Exam/Review of Systems Vital Signs Vitals Vital Signs Date Temp Pulse Resp B/P (MAP) Pulse Ox O2 O2 Flow FiO2 Time Delivery Rate 08/31/18 59 09:08 08/31/18 2.0 07:57 08/31/18 18 95 Nasal 32 07:54 Cannula 08/31/18 97.6 178/73 07:41 (108) Intake and Output 08/30/18 08/30/18 08/31/18 1515:00 23:00 07:00 IntakeIntake Total 860 ml 400 ml OutputOutput Total 150 ml 500 ml BalanceBalance 710 ml -100 ml Medications Medications Current Medications IV Flush (NS 3 ml) 3 ml PER PROTOCOL IV ; Start 08/28/18 at 15:00 Ondansetron HCl (Zofran Inj) 4 mg Q6H PRN IV NAUSEA AND/OR VOMITING Last administered on 08/29/18at 00:41; Admin Dose 4 MG; Start 08/28/18 at 15:00 Heparin Sodium (Porcine) (Heparin (5000 Units/1ml)) 5,000 unit Q12 SC Last administered on 08/31/18 09:51; Admin Dose 5,000 UNIT; Start 08/28/18 at 21:00 Senna (Senokot) 2 tab BID PO Last administered on 08/31/18 09:41; Admin Dose 2 TAB; Start 08/28/18 at 21:00 Amlodipine Besylate (Norvasc) 10 mg DAILY PO Last administered on 08/31/18 09:41; Admin Dose 10 MG; Start 08/29/18 at 09:00 Atorvastatin Calcium (Lipitor) 20 mg QHS PO Last administered on 08/30/18 20:27; Admin Dose 20 MG; Start 08/28/18 at 21:00 Carvedilol (Coreg) 6.25 mg BID PO Last administered on 08/30/18 20:27; Admin Dose 6.25 MG; Start 08/28/18 at 21:00 Hydralazine HCl (Apresoline) 10 mg BID PO Last administered on 08/31/18 09:41; Admin Dose 10 MG; Start 08/28/18 at 21:00 Lisinopril (Zestril) 20 mg DAILY PO Last administered on 08/31/18 09:42; Admin Dose 20 MG; Start 08/29/18 at 09:00; Status Hold Terazosin HCl (Hytrin) 2 mg HS PO Last administered on 08/30/18 20:26; Admin Dose 2 MG; Start 08/28/18 at 21:00 Miscellaneous Information 1 ea NOTE XX ; Start 08/28/18 at 16:00 Glucose (Glutose) 15 gm Q15M PRN PO DECREASED GLUCOSE; Start 08/28/18 at 16:00 Glucose (Glutose) 22.5 gm Q15M PRN PO DECREASED GLUCOSE; Start 08/28/18 at 16:00 Dextrose (D50w Syringe) 25 ml Q15M PRN IV DECREASED GLUCOSE; Start 08/28/18 at 16:00 Dextrose (D50w Syringe) 50 ml Q15M PRN IV DECREASED GLUCOSE; Start 08/28/18 at 16:00 Glucagon (Glucagen) 1 mg Q15M PRN IM DECREASED GLUCOSE; Start 08/28/18 at 16:00 Glucose (Glutose) 15 gm Q15M PRN BUCCAL DECREASED GLUCOSE; Start 08/28/18 at 16:00 Hydralazine HCl (Apresoline) 10 mg Q4H PRN IV SBP ABOVE 170 Last administered on 08/29/18at 17:35; Admin Dose 10 MG; Start 08/28/18 at 21:00 Pantoprazole (Protonix Iv) 40 mg DAILY@06 IV Last administered on 08/31/18 05:10; Admin Dose 40 MG; Start 08/29/18 at 06:00 Insulin Aspart (Novolog Insulin Pen) NOVOLOG *MODERATE* ALGORI... Q4 SC Last administered on 08/31/18 08:40; Admin Dose 6 UNIT; Start 08/29/18 at 09:00 Albuterol/ Ipratropium (Duoneb) 3 ml Q6HWA RESP THERAPY HHN Last administered on 08/31/18 07:53; Admin Dose 3 ML; Start 08/29/18 at 14:00 Nicotine (Nicoderm 21 Mg/ 24hr) 1 patch DAILY TRANSDERM Last administered on 08/31/18 09:54; Admin Dose 1 PATCH; Start 08/29/18 at 11:30 Aspirin (Aspirin) 81 mg DAILY PO Last administered on 08/31/18 09:40; Admin Dose 81 MG; Start 08/30/18 at 09:00 Clonidine HCl (Catapres-Tts 1 Patch) 1 patch Q7D TRANSDERM Last administered on 08/29/18at 14:15; Admin Dose 1 PATCH; Start 08/29/18 at 13:30 Methylprednisolone Sodium Succinate (Solu-Medrol) 40 mg Q12 IV Last administered on 08/31/18at 09:40; Admin Dose 40 MG; Start 08/30/18 at 21:00 Pregabalin (Lyrica) 300 mg HS PO Last administered on 08/30/18at 21:27; Admin Dose 300 MG; Start 08/30/18 at 21:00 Diphenhydramine HCl (Benadryl) 25 mg Q6 PRN IV SEDATION Last administered on 08/30/18at 23:55; Admin Dose 25 MG; Start 08/30/18 at 17:30 Tramadol HCl (Ultram) 50 mg Q6H PRN PO MODERATE PAIN LEVEL 4-6; Start 08/31/18 at 09:00 Cefepime HCl 50 ml @ 100 mls/hr Q12 IVPB ; Start 08/31/18 at 11:00 Ascorbic Acid (Vitamin C) 500 mg DAILY PO ; Start 08/31/18 at 11:00 Clonidine (Catapres) 0.1 mg Q4H PRN PO FOR SBP>160; Start 08/31/18 at 11:00 Lactulose (Enulose) 10 gm Q8 PO ; Start 08/31/18 at 14:00 Sodium Biphosphate/ Sodium Phosphate (Fleet Enema) 133 ml Q2D PRN [place] NEEDED; Start 08/31/18 at 11:00 Tizanidine HCl (Zanaflex) 2 mg Q8H PRN PO SPASTICITY; Start 08/31/18 at 11:00 Zinc Sulfate (Zinc Sulfate) 220 mg DAILY PO ; Start 08/31/18 at 11:00 Miscellaneous Information 1 each DAILY PO ; Start 08/31/18 at 11:00; Status UNV Miscellaneous Information (* Miscellaneous Pharmacy Order) Discontinue current oral sulfonylur... ONCE ONCE XX ; Start 08/31/18 at 11:00; Stop 08/31/18 at 11:01; Status UNV Diagnostic Test (Pha) (Accu-Chek) 1 ea XX ; Start 09/01/18 at 02:00; Status UNV Insulin Glargine (Lantus) 12 units DAILY@2000 SC ; Start 08/31/18 at 20:00; Status UNV Insulin Aspart (Novolog Insulin Pen) 4 unit WITH MEALS SC ; Start 08/31/18 at 11:50; Status UNV Miscellaneous Information (* Miscellaneous Pharmacy Order) HYPOGLYCEMIA PROTOCOL w... ONCE ONCE XX ; Start 08/31/18 at 11:00; Stop 08/31/18 at 11:01; Status UNV Miscellaneous Information (* Miscellaneous Pharmacy Order) Discontinue all previ... ONCE ONCE XX ; Start 08/31/18 at 11:00; Stop 08/31/18 at 11:01; Status UNV JAIME RODRÍGUEZ Aug 31, 2018 10:56
--- NOTE | 2018-08-31 10:58 | NUR ---
NUTRITION NOTE: Consult received 2/2 pressure injuries. Pt with stage 3 p/u on L foot and sacrococcyx. AMS seems to be improving. Passed bedside nursing swallow eval yesterday, on clear liquids currently. Per RN, pt is noncompliant with diet. Continue encourage diet compliance, pending possible GRADES 7 8 TUTOR re-evaluation. Noted BG = 248. A1C 6.9%. On SoluM currently. On lantus 12 units. Rec to adjust insulin as needed/as per MD to help reach BG goals. Pt is not appropriate for diet edu at time of visit, appears lethargic and wants to sleep. Noted also h/o mild-moderate dementia. Family not seen at bedside currently. RD RECOMMENDATIONS: 1. Rec to add daily MVI and Vit C therapy; zinc x 10 days to promote wound healing. 2. Will offer Diabeticshield BID and Ellis BID to optimize nutritional status for wound healing.
[2018-08-31] MEDS ORDERED: TIZANIDINE 2 MG TAB PO PRN (11:00)
[2018-08-31] MEDS ORDERED: NA PHOSPHATE/BIPHOS 133 ML ENEMA PR PRN (11:00)
--- NOTE | 2018-08-31 11:43 | NUR ---
OT NOTE Received MD orders for OT evaluation. Attempted to evaluate pt in am; pt sleeping unable to be roused. Will follow up later if time permits.
--- NOTE | 2018-08-31 13:07 | CONS ---
Date/Time of Note Date/Time of Note DATE: 08/31/18 TIME: 13:03 Assessment/Plan Assessment/Plan Hospital Course IMPRESSION: 1. Positive troponin, likely a type 2 demand infarct in the setting of respiratory distress, respiratory failure.-slowly downtrending 2. Hypertension. 3. Possible congestive heart failure with chest x-ray, diastolic by most recent echo July 2018, revealing a preserved EF of 60-65%, acute on chronic. 4. Hypercarbic respiratory failure. 5. Altered mental state. 6. Anemia. 7. Renal insufficiency. 8. Peripheral arterial disease, status post right lower extremity amputation. Recc: -continue asa/statin -continue zestril/coreg/norvasc/clonidine TTS and hydralazine with uptitration to improve BP control -trend cardiac enzymes Result Diagram: 08/31/1851908/31/18 0520 Results 24hrs Laboratory Tests Test 08/30/18 13:41 08/30/18 17:25 08/30/18 20:38 08/31/18 01:07 Bedside Glucose 202 294 H 240 H 260 H Test 08/31/18 05:12 08/31/18 05:20 08/31/18 07:48 08/31/18 08:19 Bedside Glucose 256 H 243 H White Blood Count 5.3 # Red Blood Count 2.95 L Hemoglobin 8.8 L Hematocrit 27.7 L Mean Corpuscular Volume 93.9 Mean Corpuscular 29.8 Hemoglobin Mean Corpuscular 31.8 L Hemoglobin Concent Red Cell Distribution 14.8 H Width Platelet Count 164 Mean Platelet Volume 12.5 H Immature Granulocytes % 0.600 H Neutrophils % 84.4 H Lymphocytes % 11.0 L Monocytes % 4.0 Eosinophils % 0.0 Basophils % 0.0 Nucleated Red Blood 0.0 Cells % Immature Granulocytes # 0.030 Neutrophils # 4.5 Lymphocytes # 0.6 L Monocytes # 0.2 L Eosinophils # 0.0 Basophils # 0.0 Nucleated Red Blood 0.0 Cells # Sodium Level 138 Potassium Level 5.1 Chloride Level 107 Carbon Dioxide Level 26 Anion Gap 5 Blood Urea Nitrogen 34 H Creatinine 1.46 H Est Glomerular Filtrat Rate mL/min Glucose Level 248 #H Calcium Level 9.1 Troponin I 0.128 *H Test 08/31/18 12:15 Bedside Glucose 197 Consultation Date/Type/Reason Admit Date/Time Aug 28, 2018 at 14:35 Initial Consult Date 08/29/18 Type of Consult cardiology Reason for Consultation positive troponin Requesting Provider: JAIME RODRÍGUEZ Exam/Review of Systems Vital Signs Vitals Vital Signs Date Temp Pulse Resp B/P (MAP) Pulse Ox O2 O2 Flow FiO2 Time Delivery Rate 08/31/18 58 12:32 08/31/18 97.6 17 148/85 90 11:02 (106) 08/31/18 2.0 07:57 08/31/18 Nasal 32 07:54 Cannula Intake and Output 08/30/18 08/30/18 08/31/18 1515:00 23:00 07:00 IntakeIntake Total 860 ml 400 ml OutputOutput Total 150 ml 500 ml BalanceBalance 710 ml -100 ml Exam Review of Systems: CONSTITUTIONAL: No fevers, chills. PULMONARY: No sob CARDIOVASCULAR: No chest pain/palpitations GASTROINTESTINAL: No nausea/vomiting. GENITOURINARY: No hematuria/dysuria. MUSCULOSKELETAL: No myagias/arthalgias. PSYCHIATRIC: The patient denies depression. NEUROLOGIC: No weakness Constitutional: alert Psych: no complaints Head: normocephalic ENMT: mucosa pink and moist Neck: supple, jvd (9 cm water) Respiratory: diminished breath sounds (at bases/B) Cardiovascular: regular rate and rhythm Gastrointestinal: soft, non-tender Musculoskeletal: muscle tone (normal) Extremities: edema (none), other (s/p LE amputation) Neurological: other (No focal deficits) Medications Medications Current Medications IV Flush (NS 3 ml) 3 ml PER PROTOCOL IV ; Start 08/28/18 at 15:00 Ondansetron HCl (Zofran Inj) 4 mg Q6H PRN IV NAUSEA AND/OR VOMITING Last admini stered on 08/29/18at 00:41; Admin Dose 4 MG; Start 08/28/18 at 15:00 Heparin Sodium (Porcine) (Heparin (5000 Units/1ml)) 5,000 unit Q12 SC Last administered on 08/31/18at 09:51; Admin Dose 5,000 UNIT; Start 08/28/18 at 21:00 Senna (Senokot) 2 tab BID PO Last administered on 08/31/18 09:41; Admin Dose 2 TAB; Start 08/28/18 at 21:00 Amlodipine Besylate (Norvasc) 10 mg DAILY PO Last administered on 08/31/18 09:41; Admin Dose 10 MG; Start 08/29/18 at 09:00 Atorvastatin Calcium (Lipitor) 20 mg QHS PO Last administered on 08/30/18 20:27; Admin Dose 20 MG; Start 08/28/18 at 21:00 Carvedilol (Coreg) 6.25 mg BID PO Last administered on 08/31/18 12:20; Admin Dose 6.25 MG; Start 08/28/18 at 21:00 Hydralazine HCl (Apresoline) 10 mg BID PO Last administered on 08/31/18 09:41; Admin Dose 10 MG; Start 08/28/18 at 21:00 Lisinopril (Zestril) 20 mg DAILY PO Last administered on 08/31/18 09:42; Admin Dose 20 MG; Start 08/29/18 at 09:00; Status Hold Terazosin HCl (Hytrin) 2 mg HS PO Last administered on 08/30/18 20:26; Admin Dose 2 MG; Start 08/28/18 at 21:00 Miscellaneous Information 1 ea NOTE XX ; Start 08/28/18 at 16:00 Glucose (Glutose) 15 gm Q15M PRN PO DECREASED GLUCOSE; Start 08/28/18 at 16:00 Glucose (Glutose) 22.5 gm Q15M PRN PO DECREASED GLUCOSE; Start 08/28/18 at 16: 00 Dextrose (D50w Syringe) 25 ml Q15M PRN IV DECREASED GLUCOSE; Start 08/28/18 at 16:00 Dextrose (D50w Syringe) 50 ml Q15M PRN IV DECREASED GLUCOSE; Start 08/28/18 at 16:00 Glucagon (Glucagen) 1 mg Q15M PRN IM DECREASED GLUCOSE; Start 08/28/18 at 16:00 Glucose (Glutose) 15 gm Q15M PRN BUCCAL DECREASED GLUCOSE; Start 08/28/18 at 16:00 Hydralazine HCl (Apresoline) 10 mg Q4H PRN IV SBP ABOVE 170 Last administered on 08/29/18at 17:35; Admin Dose 10 MG; Start 08/28/18 at 21:00 Pantoprazole (Protonix Iv) 40 mg DAILY@06 IV Last administered on 08/31/18 05:10; Admin Dose 40 MG; Start 08/29/18 at 06:00 Insulin Aspart (Novolog Insulin Pen) NOVOLOG *MODERATE* ALGORI... Q4 SC Last administered on 08/31/18 08:40; Admin Dose 6 UNIT; Start 08/29/18 at 09:00 Albuterol/ Ipratropium (Duoneb) 3 ml Q6HWA RESP THERAPY HHN Last administered on 08/31/18 07:53; Admin Dose 3 ML; Start 08/29/18 at 14:00 Nicotine (Nicoderm 21 Mg/ 24hr) 1 patch DAILY TRANSDERM Last administered on 08/31/18 09:54; Admin Dose 1 PATCH; Start 08/29/18 at 11:30 Aspirin (Aspirin) 81 mg DAILY PO Last administered on 08/31/18 09:40; Admin Dose 81 MG; Start 08/30/18 at 09:00 Clonidine HCl (Catapres-Tts 1 Patch) 1 patch Q7D TRANSDERM Last administered on 08/29/18at 14:15; Admin Dose 1 PATCH; Start 08/29/18 at 13:30 Methylprednisolone Sodium Succinate (Solu-Medrol) 40 mg Q12 IV Last administered on 08/31/18 09:40; Admin Dose 40 MG; Start 08/30/18 at 21:00 Pregabalin (Lyrica) 300 mg HS PO Last administered on 08/30/18 21:27; Admin Dose 300 MG; Start 08/30/18 at 21:00 Diphenhydramine HCl (Benadryl) 25 mg Q6 PRN IV SEDATION Last administered on 08/30/18 23:55; Admin Dose 25 MG; Start 08/30/18 at 17:30 Tramadol HCl (Ultram) 50 mg Q6H PRN PO MODERATE PAIN LEVEL 4-6; Start 08/31/18 at 09:00 Cefepime HCl 50 ml @ 100 mls/hr Q12 IVPB ; Start 08/31/18 at 11:00 Ascorbic Acid (Vitamin C) 500 mg DAILY PO ; Start 08/31/18 at 11:00 Clonidine (Catapres) 0.1 mg Q4H PRN PO FOR SBP>160; Start 08/31/18 at 11:00 Lactulose (Enulose) 10 gm Q8 PO ; Start 08/31/18 at 14:00 Sodium Biphosphate/ Sodium Phosphate (Fleet Enema) 133 ml Q2D PRN [place] NEEDED; Start 08/31/18 at 11:00 Tizanidine HCl (Zanaflex) 2 mg Q8H PRN PO SPASTICITY; Start 08/31/18 at 11:00 Zinc Sulfate (Zinc Sulfate) 220 mg DAILY PO ; Start 08/31/18 at 11:00 Multivitamins Therapeutic (Theragran) 1 tab DAILY PO ; Start 08/31/18 at 11:00 Diagnostic Test (Pha) (Accu-Chek) 1 ea 02 XX ; Start 09/01/18 at 02:00 Insulin Glargine (Lantus) 12 units DAILY@2000 SC ; Start 08/31/18 at 20:00 Insulin Aspart (Novolog Insulin Pen) 4 unit WITH MEALS SC Last administered on 08/31/18at 12:29; Admin Dose 4 UNIT; Start 08/31/18 at 11:50 HAL KING Aug 31, 2018 13:07
--- NOTE | 2018-08-31 13:31 | QN ---
Documentation Comment Teleneurology Telephone Note from 08/28/[address] Rod 77yo F from SNF last well at 9pm last night, found unresponsive, with left greater then right weakness. Also hypoxic and takes narcotics, and appears more globally altered. I agreed patient is not a TPA candidate due to time of onset. Patient is undergoing CTA of the head and neck now. ED physician suspicion is higher for a toxic/metabolic encephalopathy but plans to call back if CTA is concerning for possible large vessel occlusion. No further consultation is requested at this time. ANDERSON PONCE Aug 31, 2018 13:31
[2018-08-31] MEDS: ASCORBIC ACID 500 MG TAB PO SCH (13:37)
[2018-08-31] MEDS: CEFEPIME 1GM/50 ML (PMX) 50 ML IVPB SCH ×2 (13:37→20:51)
--- NOTE | 2018-08-31 13:42 | NUR ---
ST NOTE; pt is known to speech therapy from previous admission; pt had video done on 08/12/18 which showed high risk for aspiration with thin liquids; and was rec. to be on soft ground solids/ thin liquids via spoon or cup SINGLE SIP; MUST USE HARD (EFFORTFUL SWALLOW) NO MIXED CONSISTENCIES OF FOOD AND LIQUID TOGETHER; (PT ASPIRATING LIQUID BEFORE THE SWALLOW) No straws pt now readmitted secondary to ALOC; resp.failure CXR: 08/30/18 Limited study secondary to patient positioning. Grossly stable pulmonary vascular congestion with a probable small left pleural effusion and subjacent compressive atelectasis versus pneumonia. pt has history admitted sec. to respiratory failure; hypoxic and hypercapnic; was on BIPAP and off now; on nasal cannula; PMH: PUD; recent with GI BLeed; DM; peripheral artery disease; HTN; hyperkalemia; CKD supplemental oxygen via nasal cannula 3 liters; pt afebrile; BUN;creatine; high dental status; edentulous premorbid diet; soft;thin rec. pt non compliant; video done; pt refuses thickener and is not using compensatory strategies current diet; clear liquids; pt assessed as does not want liquid diet; coughing with thin via cup; inconsistent; audible upper airway congestion heard; pt refusing thickener to assess difference; not using strategy; had cups of thin via straw; coughing noted on single sip; suspect pen. to cords and suspected asp. puree wfl soft solid trials; increased time sec. to dental status will cough if not soft and moist; needs liquid wash sec. to dental status and oral residue; suspect pharyngeal residue would rec. upgrade diet to soft/chopped;thin small sips; no straws pills with puree; pt had boaz done which should not have did not pass the one boaz but then nursing repeated it and apparently passed and placed on clear liquid however pt with objective study and history of asp with liquids; spoke with RN Lilly; if md agrees upgrade diet and monitor closely as high risk for asp with liquids;
--- NOTE | 2018-08-31 13:50 | NUR ---
SW: READMISSION QUESTIONNAIRE SW attempted to meet with patient at bedside for readmission questionnaire, however patient asleep and not arousable. SW attempted to call patient's son Bao Tavares ([phone]) and left a [facility] requesting call back. SW then called [facility]. They stated that patient currently resides there with her Mario New ([phone]) and has been living there since 05/30/18. They stated that patient has a son named Bao who is involved and supportive. ADDIS then received return phone call from Bao. Bao states that patient was transferred to SNF from [facility] upon d/c from previous admission, and then transferred back to the AL she lives at a week later. Bao stated patient will return abck to the AL once medically appropriate. He is requesting to speak with MD regarding patient's condition. SW attempted to reach Dr. Maciel by text messaging him, calling him and overhead paging him. SW will reattempt at a later time. All other questions/ concerns denied at this time. SW remains available as needed.
[2018-08-31] MEDS: ZINC SULFATE 220 MG CAP PO SCH (13:52)
[2018-08-31] MEDS: MULTIVITAMINS THERAPEUTIC TAB PO SCH (13:52)
[2018-08-31] MEDS: LACTULOSE 30ML CUP PO SCH ×2 (14:02→22:47)
--- NOTE | 2018-08-31 15:40 | NUR ---
OT GLENNA: Pt is a 77 yr old female. Pt was hospitalized here at [facility] 08/03-08/12 for bacteremia, heart block, and GI bleed. After discharge she was sent to SNF to finish a course of IV antibiotics. Around 08/18 she returned back to her assisted living, where she lives with her . Pt presented to ER with Altered Mental Status and respiratory failure.Pt has right BKA. PLOF: PT reports living in an assisted living with her . Pt required CGA/ SBA with bathing and dressing and was independent with feeding and h/g. Pt ambulated with assistance when wearing prothesis, the remainder of the time pt transferred from bed->w/c with Min A/CGA and from w/c to toilet with Min A/CGA. Pt wheeled herself around the assisted living independently. CLOF: BARBIE Carr cleared pt for skilled OT Tx. Pt received supine in bed with son at bedside. Pt agreeable to tx stating pain in her back. Pt is AOx4 and demonstrated BUE AROM and MMT 4/5. Pt performed supine ->sit at EOB with CGA. Pt demonstrated Fair sitting balance while seated at EOB. Pt performed UB/LB dressing with SBA. Pt returned to bed with Min A. Pt left supine in bed with all needs met. Pt will benefit from skilled OT tx 1x daily for 3-5 x week to increase safety awareness, toilet transfers, and increased independence with ADl's. Recommend d/c back to assisted living when medically cleared by .
[2018-08-31] MEDS ORDERED: INSULIN GLARGINE [LANTus] (100 UNITS/ML) SYG SC SCH (20:00)
[2018-08-31] MEDS: TERAZOSIN 2 MG CAP PO SCH (20:50)
[2018-08-31] MEDS: ATORVASTATIN 20 MG TAB PO SCH (20:50)
[2018-08-31] MEDS: PREGABALIN 100 MG CAP PO SCH (21:05)
[2018-08-31] MEDS: DIPHENHYDRAMINE 50 MG INJ IV PRN (22:48)
[2018-09-01] VITALS (9 sets, daily range): BP systolic 140–169; BP diastolic 63–74; PULSE 62–77; RESP 18–22
[2018-09-01] MEDS: INSULIN ASPART [NOVOLOG] 3 ML PEN SC SCH ×6 (01:59→12:31)
[2018-09-01] MEDS ORDERED: ACCU-CHEK XX SCH (02:00)
[2018-09-01] MEDS: PANTOPRAZOLE 40 MG INJ IV SCH (06:38)
[2018-09-01] MEDS: LACTULOSE 30ML CUP PO SCH ×2 (06:38→13:27)
--- NOTE | 2018-09-01 07:09 | NUR ---
Pt a/a/ox4, VS stable , Pacemaker on demand , on O2 4 lt NC ,constantly requested food complain hungry. Last Blood sugar 321 coverage with 10 units Novolog. F/C drain to gravitiy. no BM. Continue care plan.
[2018-09-01] MEDS: ALBUTEROL/IPRATROPIUM (NEB) 3 ML AMP HHN SCH ×2 (08:00→14:00)
[2018-09-01] MEDS: SENNA TAB PO SCH (08:42)
[2018-09-01] MEDS: MULTIVITAMINS THERAPEUTIC TAB PO SCH (08:42)
[2018-09-01] MEDS: ASPIRIN 81 MG TAB PO SCH (08:42)
[2018-09-01] MEDS: CEFEPIME 1GM/50 ML (PMX) 50 ML IVPB SCH (08:42)
[2018-09-01] MEDS: METHYLPREDNISOLONE 40 MG INJ IV SCH (08:42)
[2018-09-01] MEDS: ASCORBIC ACID 500 MG TAB PO SCH (08:42)
[2018-09-01] MEDS: AMLODIPINE 10 MG TAB PO SCH (08:43)
[2018-09-01] MEDS: HEPARIN 5,000 UNIT/1 ML VIAL SC SCH (08:47)
[2018-09-01] MEDS: NICOTINE (21 MG/24 HR) PATCH TRANSDERM SCH (08:47)
--- NOTE | 2018-09-01 08:57 | NUR ---
PT NOTE Received MD orders for PT evaluation. Attempted to see pt in am. Pt adamantly refused at this time stating she is expecting a phone call within the next hour. Pt educated that PT may not be available later but pt continued to refuse. Communicated with RN. Will follow up if time permits.
[2018-09-01] MEDS: ZINC SULFATE 220 MG CAP PO SCH (09:00)
--- NOTE | 2018-09-01 09:00 | NUR ---
CM NOTES: REFERRALS FAXED TO ART. ZENAIDA VICTOR, RNCM [id number]
--- NOTE | 2018-09-01 10:42 | NUR ---
NUTRITION NOTE: Rec to add carb control to current soft diet.
--- NOTE | 2018-09-01 12:15 | CONS ---
Date/Time of Note Date/Time of Note DATE: 09/01/18 TIME: 12:14 Consult Date/Type/Reason Admit Date/Time Aug 28, 2018 at 14:35 Initial Consult Date Type of Consultation: Pulm ICU Requesting Provider: JAIME RODRÍGUEZ Subjective Feels better Awake alert oriented Wants to go back to her assisted living facility Objective Vital Signs Date Temp Pulse Resp B/P (MAP) Pulse Ox O2 O2 Flow FiO2 Time Delivery Rate 09/01/18 99.2 66 20 169/74 94 Nasal 11:39 (105) Cannula 09/01/18 4.0 08:30 08/31/18 32 13:55 Intake and Output 08/31/18 08/31/18 09/01/18 1515:00 23:00 07:00 IntakeIntake Total 50 ml 720 ml 800 ml OutputOutput Total 400 ml 725 ml BalanceBalance 50 ml 320 ml 75 ml Results/Medications Result Diagram: 09/01/18 0601 09/01/18 0601 Results 24 hrs Laboratory Tests Test 08/31/18 12:15 08/31/18 17:49 08/31/18 20:42 09/01/18 01:41 Bedside Glucose 197 191 160 302 H Test 09/01/18 06:01 09/01/18 06:36 09/01/18 07:53 White Blood Count 4.7 L Red Blood Count 2.90 L Hemoglobin 8.7 L Hematocrit 27.1 L Mean Corpuscular Volume 93.4 Mean Corpuscular 30.0 Hemoglobin Mean Corpuscular 32.1 Hemoglobin Concent Red Cell Distribution 14.4 Width Platelet Count 172 Mean Platelet Volume 12.6 H Immature Granulocytes % 0.400 Neutrophils % 90.8 H Lymphocytes % 6.2 L Monocytes % 2.6 Eosinophils % 0.0 Basophils % 0.0 Nucleated Red Blood 0.0 Cells % Immature Granulocytes # 0.020 Neutrophils # 4.2 Lymphocytes # 0.3 L Monocytes # 0.1 L Eosinophils # 0.0 Basophils # 0.0 Nucleated Red Blood 0.0 Cells # Sodium Level 140 Potassium Level 4.5 Chloride Level 107 Carbon Dioxide Level 25 Anion Gap 8 Blood Urea Nitrogen 39 H Creatinine 1.34 H Est Glomerular Filtrat Rate mL/min Glucose Level 300 H Calcium Level 8.8 Bedside Glucose 321 H 363 H Medications Current Medications IV Flush (NS 3 ml) 3 ml PER PROTOCOL IV ; Start 08/28/18 at 15:00 Ondansetron HCl (Zofran Inj) 4 mg Q6H PRN IV NAUSEA AND/OR VOMITING Last administered on 08/29/18at 00:41; Admin Dose 4 MG; Start 08/28/18 at 15:00 Heparin Sodium (Porcine) (Heparin (5000 Units/1ml)) 5,000 unit Q12 SC Last administered on 09/01/18 08:47; Admin Dose 5,000 UNIT; Start 08/28/18 at 21:00 Senna (Senokot) 2 tab BID PO Last administered on 09/01/18 08:42; Admin Dose 2 TAB; Start 08/28/18 at 21:00 Amlodipine Besylate (Norvasc) 10 mg DAILY PO Last administered on 09/01/18 08:43; Admin Dose 10 MG; Start 08/29/18 at 09:00 Atorvastatin Calcium (Lipitor) 20 mg QHS PO Last administered on 08/31/18 20:50; Admin Dose 20 MG; Start 08/28/18 at 21:00 Carvedilol (Coreg) 6.25 mg BID PO Last administered on 09/01/18 08:43; Admin Dose 6.25 MG; Start 08/28/18 at 21:00 Lisinopril (Zestril) 20 mg DAILY PO Last administered on 08/31/18 09:42; Admin Dose 20 MG; Start 08/29/18 at 09:00; Status Hold Terazosin HCl (Hytrin) 2 mg HS PO Last administered on 08/31/18 20:50; Admin Dose 2 MG; Start 08/28/18 at 21:00 Miscellaneous Information 1 ea NOTE XX ; Start 08/28/18 at 16:00 Glucose (Glutose) 15 gm Q15M PRN PO DECREASED GLUCOSE; Start 08/28/18 at 16:00 Glucose (Glutose) 22.5 gm Q15M PRN PO DECREASED GLUCOSE; Start 08/28/18 at 16:00 Dextrose (D50w Syringe) 25 ml Q15M PRN IV DECREASED GLUCOSE; Start 08/28/18 at 16:00 Dextrose (D50w Syringe) 50 ml Q15M PRN IV DECREASED GLUCOSE; Start 08/28/18 at 16:00 Glucagon (Glucagen) 1 mg Q15M PRN IM DECREASED GLUCOSE; Start 08/28/18 at 16:00 Glucose (Glutose) 15 gm Q15M PRN BUCCAL DECREASED GLUCOSE; Start 08/28/18 at 16:00 Hydralazine HCl (Apresoline) 10 mg Q4H PRN IV SBP ABOVE 170 Last administered on 08/29/18 17:35; Admin Dose 10 MG; Start 08/28/18 at 21:00 Pantoprazole (Protonix Iv) 40 mg DAILY@06 IV Last administered on 09/01/18 06:38; Admin Dose 40 MG; Start 08/29/18 at 06:00 Albuterol/ Ipratropium (Duoneb) 3 ml Q6HWA RESP THERAPY HHN Last administered on 08/31/18 20:40; Admin Dose 3 ML; Start 08/29/18 at 14:00 Nicotine (Nicoderm 21 Mg/ 24hr) 1 patch DAILY TRANSDERM Last administered on 08:47; Admin Dose 1 PATCH; Start 08/29/18 at 11:30 Aspirin (Aspirin) 81 mg DAILY PO Last administered on 09/01/18 08:42; Admin Dose 81 MG; Start 08/30/18 at 09:00 Clonidine HCl (Catapres-Tts 1 Patch) 1 patch Q7D TRANSDERM Last administered on 08/29/18at 14:15; Admin Dose 1 PATCH; Start 08/29/18 at 13:30 Methylprednisolone Sodium Succinate (Solu-Medrol) 40 mg Q12 IV Last administered on 09/01/18 08:42; Admin Dose 40 MG; Start 08/30/18 at 21:00 Pregabalin (Lyrica) 300 mg HS PO Last administered on 08/31/18 21:05; Admin Dose 300 MG; Start 08/30/18 at 21:00 Diphenhydramine HCl (Benadryl) 25 mg Q6 PRN IV SEDATION Last administered on 08/31/18 22:48; Admin Dose 25 MG; Start 08/30/18 at 17:30 Tramadol HCl (Ultram) 50 mg Q6H PRN PO MODERATE PAIN LEVEL 4-6; Start 08/31/18 at 09:00 Cefepime HCl 50 ml @ 100 mls/hr Q12 IVPB Last administered on 09/01/18 08:42; Admin Dose 100 MLS/HR; Start 08/31/18 at 11:00 Ascorbic Acid (Vitamin C) 500 mg DAILY PO Last administered on 09/01/18 08:42; Admin Dose 500 MG; Start 08/31/18 at 11:00 Clonidine (Catapres) 0.1 mg Q4H PRN PO FOR SBP>160; Start 08/31/18 at 11:00 Lactulose (Enulose) 10 gm Q8 PO Last administered on 09/01/18 06:38; Admin Dose 10 GM; Start 08/31/18 at 14:00 Sodium Biphosphate/ Sodium Phosphate (Fleet Enema) 133 ml Q2D PRN [place] NEEDED; Start 08/31/18 at 11:00 Tizanidine HCl (Zanaflex) 2 mg Q8H PRN PO SPASTICITY; Start 08/31/18 at 11:00 Zinc Sulfate (Zinc Sulfate) 220 mg DAILY PO Last administered on 09/01/18 09:00; Admin Dose 220 MG; Start 08/31/18 at 11:00 Multivitamins Therapeutic (Theragran) 1 tab DAILY PO Last administered on 09/01/18 08:42; Admin Dose 1 TAB; Start 08/31/18 at 11:00 Diagnostic Test (Pha) (Accu-Chek) 1 ea 02 XX ; Start 09/01/18 at 02:00 Insulin Glargine (Lantus) 12 units DAILY@2000 SC Last administered on 08/31/18 20:58; Admin Dose 12 UNITS; Start 08/31/18 at 20:00 Insulin Aspart (Novolog Insulin Pen) 4 unit WITH MEALS SC Last administered on 09/01/18 07:58; Admin Dose 4 UNIT; Start 08/31/18 at 11:50 Hydralazine HCl (Apresoline) 25 mg Q8 PO Last administered on 09/01/18 06:38; Admin Dose 25 MG; Start 08/31/18 at 14:00 Insulin Aspart (Novolog Insulin Pen) NOVOLOG *MODERATE* ALGORI... AC MEALS AND BEDTIME SC Last administered on 09/01/18 08:03; Admin Dose 12 UNIT; Start 09/01/18 at 07:57 Assessment/Plan Chief Complaint/Hosp Course IMPRESSION AND PLAN: 1. Encephalopathy, likely secondary to hypercapnia from acute on chronic obstructive pulmonary disease exacerbation. Resolved. 2. Chronic hypercapnic respiratory failure, likely secondary to significant underlying chronic lung disease. 3. Peripheral vascular disease status post amputation. 4. Essential hypertension. 5. Renal insufficiency. 6. Aspiration risk. The patient will require: 1. Continued noninvasive positive pressure ventilation as tolerated. 2. Steroids for COPD exacerbation. 3. May require insulin drip. 4. Hyperglycemia. 4. BP management. 5. DVT and GI prophylaxis. 6. [facility] Transfer to [facility] cc40 mins KRISTEN BOLDEN MD, FCCP Sep 01, 2018 12:15
--- NOTE | 2018-09-01 12:26 | PDOCDIS ---
Discharge Instructions CONDITION [id number] Patient Condition: Achvo1e Stable HOME CARE INSTRUCTIONS: [id number] Diet Instructions: Nadpt7c Low Fat /Cholesterol ACTIVITY: [id number] Activity Restrictions: [id number] Slowly Increase Activity Rest between Activity Avoid heavy lifting FOLLOW UP/APPOINTMENTS Follow-up Plan Please take your medications as prescribed. Please avoid taking excess medication such as Percocet and [place], because along with you taking the gabapentin, these make your breathing symptoms very difficult and tendency to go into respiratory distress. Please follow-up with your regular doctor in the clinic in the next 1 week JAIME RODRÍGUEZ Sep 01, 2018 12:26
[2018-09-01] MEDS ORDERED: INSULIN ASPART [NOVOLOG] 3 ML PEN SC ONE (12:30)
[2018-09-01] MEDS ORDERED: PRED50TA PO (12:33)
[2018-09-01] MEDS ORDERED: PRED20TA PO (12:33)
[2018-09-01] MEDS ORDERED: NICO-546 TRANSDERM (12:33)
[2018-09-01] MEDS ORDERED: TRAM50TA2 PO (12:33)
[2018-09-01] MEDS ORDERED: CIPR-193 PO (12:39)
--- NOTE | 2018-09-01 12:41 | DS ---
Date/Time of Note Date/Time of Note DATE: 09/01/18 TIME: 12:36 Discharge Summary Admission/Discharge Info Admit Date/Time Aug 28, 2018 at 14:35 Discharge Date/Time Discharge Diagnosis #Encephalopathy -fully resolving, patient also respiratory failure - hypoxic and hypercapnic-both these possibly due to polypharmacy, especially opioids + benzodiazepines, antispasmodics, and antidepressants. This is what we suspected last admission as well. Patient required BiPAP on admission, now off the last [address] on admission negative. -Continue to hold most of sedating meds for now, appreciate pain management consult -have instead kept her Lyrica, and added tramadol as needed. No opiates. -Follow-up recommendations from pulmonary team as well, patient also on low- dose IV steroids and breathing treatments -We will reconsult speech therapy team as well -Continue PT #NIDDM -sugars have been stable, now in the low to mid 200 range in the last 24 hours. A1c is 6.9. -Continue to hold home antiglycemics -Add low-dose aspart with meals, low-dose Lantus, continue insulin sliding scale. #Peripheral artery disease -patient also has history of right BKA - Cont statin - Cont lyrica for pain. - Continue to hold opioids for pain until mental status improves. #HTN -blood pressure presently stable. She also has history of pacemaker, and has slight elevation of troponins, per cardiology team secondary to a type 2 demand infarct in the setting of respiratory distress, slowly improving - Cont norvasc, beta willa - For now holding NANDINI inhibitor, as there is also some renal insufficiency as well #Hyperkalemia- Potassium level stable this morning at 5.1 - Monitor - If remains elevated will consider insulin or kayexalate. #History of PUD with recent GI bleed - Continue PPI #CKD- Cr currently a bit more elevated this morning. - Avoid nephrotoxins, renally dose meds when indicated Patient Condition: Stable Hx of Present Illness 77 yo woman with history of peripheral arterial disease and heart block requiring pacemaker who presents with AMS. Patient is confused and minimally responsive; most history is per charting and son at bedside. She was hospitalized here at [facility] 08/03-08/12 for bacteremia, heart block, and GI bleed. After discharge she was sent to SNF to finish a course of IV antibiotics. Around 08/18 she returned back to her assisted living, where she lives with her . The patient was in her usual state of health until this morning, when she was found by nursing staff to have altered mental status. Paramedics were able to articulate the patient's last known normal was around 9 PM yesterday evening. Obtunded. Saturation at the facility was 95 but upon arrival saturation was found to be 70%. According to her son she is on high doses of percocet for chronic peripheral vascular pain as well as Ativan for anxiety. In the ED, she was hypoxic saturating 70% on room air. She required nonrebreather mask. Code stroke was called, per discussion with Dr. Vazquez, the telemedicine neurologist, TPA would not be indicated so [id number] evaluation not needed. CT head without obvious LVO. Her oxygenation improved on BiPAP, she will admitted to ICU. Hospital Course So patient was admitted to intensive care unit. Her facial droop and stroke symptoms seem to resolve. She was unable to undergo MRI of the brain because of pacemaker history. In any event as mentioned above her neurologic symptoms seem improved. Regarding her overall altered mental status and respiratory distress, she was initially placed on bronchodilators, steroids, and antibiotics. She was also found with a mild Enterobacter UTI, and placed on appropriate antibiotic medications for that. She was seen by multiple specialists during this hospital stay including pulmonary, physical therapy, and pain management team. It was thought that her her respiratory distress and hypoxemic and hypercapnic respiratory failure were to were due to a combination of obstructive lung disease exacerbation as well as excess opiate use as an outpatient. Patient's opiate medications were subsequently withheld, and she was educated about the importance of not over taking her home [place] and Percocet medications, which she appears to have been doing, along with taking Lyrica at home as these 2 medicines taken together can exacerbate respiratory distress and failure. Patient's altered mental status respiratory distress symptoms eventually improved, she was transferred out of the intensive care unit. She had some high blood sugars, secondary to her steroid use, and insulin medications were adjusted appropriately. Eventually he was back to baseline status and will be discharged back to [facility] facility today in improved condition. See below for full list of discharge medications. Home Meds Active Scripts Tramadol HCl (Tramadol HCl) 50 Mg Tablet, 50 MG PO Q6H PRN for MODERATE PAIN LEVEL 4-6, #24 TAB Prov:JAIME RODRÍGUEZ S. 09/01/18 Prednisone* (Prednisone*) 20 Mg Tab, 20 MG PO DAILY for 2 Days, #2 TAB Prov:JAIME RODRÍGUEZ S. 09/01/18 Prednisone* (Prednisone*) 50 Mg Tablet, 40 MG PO DAILY for 2 Days, TAB Prov:JAIME RODRÍGUEZ S. 09/01/18 Nicotine* (Nicotine* Patch) 21 mg/day Patch, 1 PATCH TRANSDERM DAILY, #1 BOTTLE 3 Refills Prov:JAIME RODRÍGUEZ S. 09/01/18 Reported Medications Ondansetron Hcl* (Ondansetron Hcl*) 4 Mg Tablet, 4 MG PO Q4H PRN for NAUSEA AND OR VOMITING, TAB 08/03/18 Magnesium Hydroxide* (Milk Of Magnesia*) 400 Mg/5 Ml Oral.susp, 30 ML PO Q24H for CONSTIPATION, ML 08/03/18 Lactulose* (Lactulose*) 10 Gm/15 Ml Solution, 10 GM PO Q8, ML 08/03/18 Na Phos,M-B/Na Phos,Di-Ba (Enema) 133 Ml Enema, 133 ML RC Q2D PRN for NEEDED, ENEMA 08/03/18 Clonidine Hcl* (Clonidine Hcl*) 0.1 Mg Tab, 0.1 MG PO Q4H PRN for FOR SBP>160, TAB 08/03/18 Bisacodyl* (Bisacodyl*) 10 Mg Supp, 10 MG DC Q24H for CONSTIPATION, SUPP 08/03/18 Acetaminophen* (Acetaminophen*) 325 Mg Tablet, 650 MG PO Q4H PRN for PAIN 1- 12/07, #30 TAB OR FEVER 08/03/18 Clonidine Patch (CLONIDINE PATCH) 0.3 Mg/24 Hr Patch, 1 PATCH.WK TD Q SUN, #4 PATCH.WK 08/03/18 Tizanidine Hcl* (Tizanidine Hcl*) 2 Mg Tablet, 2 MG PO Q8H PRN for SPASTICITY, TAB 08/03/18 Pregabalin* (Lyrica*) 300 Mg Capsule, 300 MG PO BID, CAP 08/03/18 Hydralazine Hcl* (Hydralazine Hcl*) 10 Mg Tablet, 10 MG PO BID, #60 TAB 08/03/18 Carvedilol* (Carvedilol*) 6.25 Mg Tablet, 6.25 MG PO BID, #60 TAB 08/03/18 Zinc Sulfate* (Zinc Sulfate*) 220 Mg Cap, 220 MG PO DAILY, CAP 08/03/18 Linagliptin (TRADJENTA) 5 Mg Tablet, 5 MG PO DAILY, TAB 08/03/18 Multivitamin with Minerals (Multivitamins with Minerals) 1 Each Tablet, 1 EACH PO DAILY, TAB 08/03/18 Terazosin Hcl* (Terazosin Hcl*) 2 Mg Capsule, 2 MG PO HS, CAP 08/03/18 Mirtazapine* (Mirtazapine*) 7.5 Mg Tablet, 7.5 MG PO HS, TAB 08/03/18 Metformin Hcl* (Metformin Hcl*) 1,000 Mg Tablet, 2000 MG PO WITH BREAKFAST, #30 TAB 08/03/18 Lisinopril* (Lisinopril*) 20 Mg Tablet, 20 MG PO DAILY, #30 TAB 08/03/18 Atorvastatin Calcium* (Atorvastatin Calcium*) 20 Mg Tablet, 20 MG PO QHS, #30 TAB 08/03/18 Ascorbic Acid (Vitamin C) 500 Mg Tab, 500 MG PO DAILY, TAB 08/03/18 Amlodipine Besylate* (Amlodipine Besylate*) 10 Mg Tablet, 10 MG PO DAILY, #30 TAB 08/03/18 Discontinued Reported Medications Oxycodone Hcl-Acetaminophen* (Endocet*) 10-325 Mg Tablet, 1 TAB PO Q6H PRN for PAIN, TAB 08/03/18 Follow-up Plan Please take your medications as prescribed. Please avoid taking excess medication such as Percocet and [place], because along with you taking the gabapentin, these make your breathing symptoms very difficult and tendency to go into respiratory distress. Please follow-up with your regular doctor in the clinic in the next 1 week Primary Care Provider Not On Staff Doctor Time spent on discharge: > 30 minutes Pending Labs Laboratory Tests Test 08/31/18 17:49 08/31/18 20:42 09/01/18 01:41 09/01/18 06:01 Bedside 191 160 302 Glucose mg/dL (70-220) mg/dL (70-220) mg/dL (70-220) White Blood 4.7 Count 10^3/ul (4.8-1 0.8) Red Blood 2.90 Count 10^6/ul (4.20- 5.40) Hemoglobin 8.7 g/dl (12.0-16. 0) Hematocrit 27.1 % (37.0-47.0) Mean 93.4 Corpuscular fl (82.0-101.0 Volume ) Mean 30.0 Corpuscular pg (29.0-33.0) Hemoglobin Mean 32.1 Corpuscular g/dl (32.0-37. Hemoglobin Conc 0) ent Red Cell 14.4 Distribution % (11.5-14.5) Width Platelet Count 172 10^3/UL (140-4 15) Mean Platelet 12.6 Volume fl (7.4-10.4) Immature 0.400 Granulocytes % % (0.001-0.429 ) Neutrophils % 90.8 % (39.0-77.0) Lymphocytes % 6.2 % (15.0-51.0) Monocytes % 2.6 % (0.0-11.0) Eosinophils % 0.0 % (0.0-7.0) Basophils % 0.0 % (0.0-2.0) Nucleated Red 0.0 Blood Cells % /100WBC (0.0-0 .0) Immature 0.020 Granulocytes # 10^3/ul (0.0-0 .031) Neutrophils # 4.2 10^3/ul (1.6-7 .5) Lymphocytes # 0.3 10^3/ul (0.8-2 .9) Monocytes # 0.1 10^3/ul (0.3-0 .9) Eosinophils # 0.0 10^3/ul (0.0-0 .5) Basophils # 0.0 10^3/ul (0.0-0 .1) Nucleated Red 0.0 Blood Cells # 10^3/ul (0.0-0 .0) Sodium Level 140 mmol/L (135-14 4) Potassium 4.5 Level mmol/L (3.5-5. 1) Chloride Level 107 mmol/L (97-110 ) Carbon Dioxide 25 Level mmol/L (21-31) Anion Gap 8 (5-13) Blood Urea 39 Nitrogen mg/dl (7-20) Creatinine 1.34 mg/dl (0.44-1. 00) Est Glomerular mL/min (>60) Filtrat Rate mL/min Glucose Level 300 mg/dl (70-220) Calcium Level 8.8 mg/dl (8.4-10. 2) Test 09/01/18 06:36 09/01/18 07:53 09/01/18 12:15 Bedside 321 363 420 Glucose mg/dL (70-220) mg/dL (70-220) mg/dL (70-220) JAIME RODRÍGUEZ Sep 01, 2018 12:41
--- NOTE | 2018-09-01 13:24 | CONS ---
Date/Time of Note Date/Time of Note DATE: 09/01/18 TIME: 13:21 Assessment/Plan Assessment/Plan Hospital Course IMPRESSION: 1. Positive troponin, likely a type 2 demand infarct in the setting of respiratory distress, respiratory failure.-slowly downtrending 2. Hypertension. 3. Possible congestive heart failure with chest x-ray, diastolic by most recent echo July 2018, revealing a preserved EF of 60-65%, acute on chronic. 4. Hypercarbic respiratory failure. 5. Altered mental state. 6. Anemia. 7. Renal insufficiency. 8. Peripheral arterial disease, status post right lower extremity amputation. Recc: -continue asa/statin -continue zestril/coreg/norvasc/clonidine TTS and hydralazine with uptitration to improve BP control -trend cardiac enzymes Result Diagram: 09/01/18 0609/01/18 0601 Results 24hrs Laboratory Tests Test 08/31/18 17:49 08/31/18 20:42 09/01/18 01:41 09/01/18 06:01 Bedside Glucose 191 160 302 H White Blood Count 4.7 L Red Blood Count 2.90 L Hemoglobin 8.7 L Hematocrit 27.1 L Mean Corpuscular Volume 93.4 Mean Corpuscular 30.0 Hemoglobin Mean Corpuscular 32.1 Hemoglobin Concent Red Cell Distribution 14.4 Width Platelet Count 172 Mean Platelet Volume 12.6 H Immature Granulocytes % 0.400 Neutrophils % 90.8 H Lymphocytes % 6.2 L Monocytes % 2.6 Eosinophils % 0.0 Basophils % 0.0 Nucleated Red Blood 0.0 Cells % Immature Granulocytes # 0.020 Neutrophils # 4.2 Lymphocytes # 0.3 L Monocytes # 0.1 L Eosinophils # 0.0 Basophils # 0.0 Nucleated Red Blood 0.0 Cells # Sodium Level 140 Potassium Level 4.5 Chloride Level 107 Carbon Dioxide Level 25 Anion Gap 8 Blood Urea Nitrogen 39 H Creatinine 1.34 H Est Glomerular Filtrat Rate mL/min Glucose Level 300 H Calcium Level 8.8 Test 09/01/18 06:36 09/01/18 07:53 09/01/18 12:15 Bedside Glucose 321 H 363 H 420 *H Consultation Date/Type/Reason Admit Date/Time Aug 28, 2018 at 14:35 Initial Consult Date 08/29/18 Type of Consult cardiology Reason for Consultation positive troponin Requesting Provider: JAIME RODRÍGUEZ Exam/Review of Systems Vital Signs Vitals Vital Signs Date Temp Pulse Resp B/P (MAP) Pulse Ox O2 O2 Flow FiO2 Time Delivery Rate 09/01/18 67 12:00 09/01/18 99.2 20 169/74 94 Nasal 11:39 (105) Cannula 09/01/18 4.0 08:30 08/31/18 32 13:55 Intake and Output 08/31/18 08/31/18 09/01/18 1515:00 23:00 07:00 IntakeIntake Total 50 ml 720 ml 800 ml OutputOutput Total 400 ml 725 ml BalanceBalance 50 ml 320 ml 75 ml Exam Review of Systems: CONSTITUTIONAL: No fevers, chills. PULMONARY: No sob CARDIOVASCULAR: No chest pain/palpitations GASTROINTESTINAL: No nausea/vomiting. GENITOURINARY: No hematuria/dysuria. MUSCULOSKELETAL: No myagias/arthalgias. PSYCHIATRIC: The patient denies depression. NEUROLOGIC: No weakness Constitutional: alert Psych: no complaints Head: normocephalic ENMT: mucosa pink and moist Neck: supple, jvd Respiratory: diminished breath sounds Cardiovascular: regular rate and rhythm Gastrointestinal: soft, non-tender Musculoskeletal: muscle tone (normal) Extremities: edema (none) Medications Medications Current Medications IV Flush (NS 3 ml) 3 ml PER PROTOCOL IV ; Start 08/28/18 at 15:00 Ondansetron HCl (Zofran Inj) 4 mg Q6H PRN IV NAUSEA AND/OR VOMITING Last administered on 08/29/18at 00:41; Admin Dose 4 MG; Start 08/28/18 at 15:00 Heparin Sodium (Porcine) (Heparin (5000 Units/1ml)) 5,000 unit Q12 SC Last administered on 09/01/18 08:47; Admin Dose 5,000 UNIT; Start 08/28/18 at 21:00 Senna (Senokot) 2 tab BID PO Last administered on 09/01/18 08:42; Admin Dose 2 TAB; Start 08/28/18 at 21:00 Amlodipine Besylate (Norvasc) 10 mg DAILY PO Last administered on 09/01/18 08:43; Admin Dose 10 MG; Start 08/29/18 at 09:00 Atorvastatin Calcium (Lipitor) 20 mg QHS PO Last administered on 08/31/18 20:50; Admin Dose 20 MG; Start 08/28/18 at 21:00 Carvedilol (Coreg) 6.25 mg BID PO Last administered on 09/01/18 08:43; Admin Dose 6.25 MG; Start 08/28/18 at 21:00 Lisinopril (Zestril) 20 mg DAILY PO Last administered on 08/31/18 09:42; Admin Dose 20 MG; Start 08/29/18 at 09:00; Status Hold Terazosin HCl (Hytrin) 2 mg HS PO Last administered on 08/31/18 20:50; Admin Dose 2 MG; Start 08/28/18 at 21:00 Miscellaneous Information 1 ea NOTE XX ; Start 08/28/18 at 16:00 Glucose (Glutose) 15 gm Q15M PRN PO DECREASED GLUCOSE; Start 08/28/18 at 16:00 Glucose (Glutose) 22.5 gm Q15M PRN PO DECREASED GLUCOSE; Start 08/28/18 at 16:00 Dextrose (D50w Syringe) 25 ml Q15M PRN IV DECREASED GLUCOSE; Start 08/28/18 at 16:00 Dextrose (D50w Syringe) 50 ml Q15M PRN IV DECREASED GLUCOSE; Start 08/28/18 at 16:00 Glucagon (Glucagen) 1 mg Q15M PRN IM DECREASED GLUCOSE; Start 08/28/18 at 16:00 Glucose (Glutose) 15 gm Q15M PRN BUCCAL DECREASED GLUCOSE; Start 08/28/18 at 16:00 Hydralazine HCl (Apresoline) 10 mg Q4H PRN IV SBP ABOVE 170 Last administered on 08/29/18at 17:35; Admin Dose 10 MG; Start 08/28/18 at 21:00 Pantoprazole (Protonix Iv) 40 mg DAILY@06 IV Last administered on 09/01/18 06:38; Admin Dose 40 MG; Start 08/29/18 at 06:00 Albuterol/ Ipratropium (Duoneb) 3 ml Q6HWA RESP THERAPY HHN Last administered on 08/31/18 20:40; Admin Dose 3 ML; Start 08/29/18 at 14:00 Nicotine (Nicoderm 21 Mg/ 24hr) 1 patch DAILY TRANSDERM Last administered on 09/01/18 08:47; Admin Dose 1 PATCH; Start 08/29/18 at 11:30 Aspirin (Aspirin) 81 mg DAILY PO Last administered on 09/01/18 08:42; Admin Dose 81 MG; Start 08/30/18 at 09:00 Clonidine HCl (Catapres-Tts 1 Patch) 1 patch Q7D TRANSDERM Last administered on 08/29/18at 14:15; Admin Dose 1 PATCH; Start 08/29/18 at 13:30 Methylprednisolone Sodium Succinate (Solu-Medrol) 40 mg Q12 IV Last administ ered on 09/01/18 08:42; Admin Dose 40 MG; Start 08/30/18 at 21:00 Pregabalin (Lyrica) 300 mg HS PO Last administered on 08/31/18 21:05; Admin Dose 300 MG; Start 08/30/18 at 21:00 Diphenhydramine HCl (Benadryl) 25 mg Q6 PRN IV SEDATION Last administered on 08/31/18 22:48; Admin Dose 25 MG; Start 08/30/18 at 17:30 Tramadol HCl (Ultram) 50 mg Q6H PRN PO MODERATE PAIN LEVEL 4-6; Start 08/31/18 at 09:00 Cefepime HCl 50 ml @ 100 mls/hr Q12 IVPB Last administered on 09/01/18 08:42; Admin Dose 100 MLS/HR; Start 08/31/18 at 11:00 Ascorbic Acid (Vitamin C) 500 mg DAILY PO Last administered on 09/01/18 08:42; Admin Dose 500 MG; Start 08/31/18 at 11:00 Clonidine (Catapres) 0.1 mg Q4H PRN PO FOR SBP>160; Start 08/31/18 at 11:00 Lactulose (Enulose) 10 gm Q8 PO Last administered on 09/01/18 06:38; Admin Dose 10 GM; Start 08/31/18 at 14:00 Sodium Biphosphate/ Sodium Phosphate (Fleet Enema) 133 ml Q2D PRN LA NEEDED; Start 08/31/18 at 11:00 Tizanidine HCl (Zanaflex) 2 mg Q8H PRN PO SPASTICITY; Start 08/31/18 at 11:00 Zinc Sulfate (Zinc Sulfate) 220 mg DAILY PO Last administered on 09/01/18 09:00; Admin Dose 220 MG; Start 08/31/18 at 11:00 Multivitamins Therapeutic (Theragran) 1 tab DAILY PO Last administered on 09/01/18 08:42; Admin Dose 1 TAB; Start 08/31/18 at 11:00 Diagnostic Test (Pha) (Accu-Chek) 1 ea 02 XX ; Start 09/01/18 at 02:00 Insulin Glargine (Lantus) 12 units DAILY@2000 SC Last administered on 08/31/18 20:58; Admin Dose 12 UNITS; Start 08/31/18 at 20:00 Insulin Aspart (Novolog Insulin Pen) 4 unit WITH MEALS SC Last administered on 09/01/18 12:31; Admin Dose 4 UNIT; Start 08/31/18 at 11:50 Hydralazine HCl (Apresoline) 25 mg Q8 PO Last administered on 09/01/18 06:38; Admin Dose 25 MG; Start 08/31/18 at 14:00 Insulin Aspart (Novolog Insulin Pen) NOVOLOG *MODERATE* ALGORI... AC MEALS AND BEDTIME SC Last administered on 09/01/18 12:31; Admin Dose 12 UNIT; Start 09/01/18 at 07:57 HAL KING Sep 01, 2018 13:24
[2018-09-01] MEDS ORDERED: LEVA15HF6 INH (13:44)
--- NOTE | 2018-09-01 16:15 | NUR ---
CM NOTES: S/W CHARGE NURSE MARTIN AND DR RODRÍGUEZ THAT PT CANNOT BE DC BACK TO [facility] UNTIL PT'S O2 SATS IS CHECKED ON RA FIRST. THIS CM S/W [facility] BOO THAT IF PT NEEDS HOME O2, IT MUST BE SET UP BEFORE DC. CURRENTLY THERE ARE NO NOTES INDICATING THAT PT'S O2 SATS LEVEL ON RA IN THE AFTERNOON. AGAIN, PT CANNOT BE DC UNTIL O2 SATS ON RA IS VERIFIED AND IF IT IS BELOW 89%, HOME O2 SETUP MUST BE DONE BEFORE GOING BACK TO THE [facility]. THIS CM DID ARRANGE [facility] [phone] (TRIPS# [phone]) ON WILL CALL AND CAN TRANSPORT THE PT TO THE ABOVE FACILITY ONCE O2 NEED CAN BE VERIFIED. DR RODRÍGUEZ WILL CHECK WITH THE BEDSIDE NURSE. ALEXUS JOHNSON LEAD CM [phone]
--- NOTE | 2018-09-01 16:20 | NUR ---
PATIENT'S O2 SAT WAS 90 -92% ON ROOM AIR AND NO SOB.
--- NOTE | 2018-09-01 16:54 | NUR ---
CM NOTES: S/W [facility] ANNALIE [phone] ABOUT THE PT AND FAXED ORDER TO THEIR [facility]REF[facility] [phone] WITH HH ORDER. SHE WAS TOLD THAT PT WILL NOT NEED HOME HEALTH. PT DOES NOT NEED HOME O2: O2 SATS 95% ON RA. PT CANNOT USE OTHER HH AND MUST USE ABOVE HH TO RETURN BACK TO [facility]. THIS CM ACTIVATED THE [facility] PHONE CALL [phone] FOR POOJA. PT CAN BE DC HOME TODAY ONCE [facility] ARRIVES. AELXUS JOHNSON LEAD CM [phone]
[2018-09-01] MEDS ORDERED: hydrALAzine 20 MG INJ IV ONE (17:00)
--- NOTE | 2018-09-01 17:05 | NUR ---
Nurse Notes Gus degroot was on will call. paint supervisor was set up for 1900. Ignacia VALENTIN made aware.
--- NOTE | 2018-09-01 17:28 | NUR ---
@2508 PATIENT'S BLOOD SUGAR WAS 314 AND BP:164/72,INFORMED TO DR RODRÍGUEZ.
--- NOTE | 2018-09-01 17:31 | NUR ---
@1645 GIVEN HYDRALAZINE 5 MG IV FOR HIGH BP(164/72).MONITORING PATIENT.
--- NOTE | 2018-09-01 19:37 | RADRPT ---
Vent Rate: 52 bpm RR Interval: 0 msec [place] Interval: 0 msec QRS Duration: 150 msec QT Interval: 480 msec QTC Interval: 446 msec P-R-T [place]: 94 - -66 - 96 degrees Electronic ventricular pacemaker Electronically Signed By: Pato Claros [phone]
[2018-09-01] MEDS: PREGABALIN 100 MG CAP PO SCH (20:27)
--- NOTE | 2018-09-01 20:40 | NUR ---
Pt d/c to assited living by ambulance. IV Heplock removed , All belonging taken.
== END 2018-09-01 20:50 | disposition home or self-care (01) | DRG 91 ==
LOC: E/R 13:04 → ICU 14:35 → TEL 08-30 13:24
PROVIDERS: ADMIT Internal Medicine; ATTEND Hospitalist
PROC: 5A09457 Assistance with Respiratory Ventilation, 24-96 Consecutive Hours, Continuous Positive Airway Pressure (ICD-10-PCS; principal; 2018-08-28)
DX: G92 Toxic encephalopathy (principal); J96.02 Acute respiratory failure with hypercapnia; I21.A1 Myocardial infarction type 2; J96.01 Acute respiratory failure with hypoxia; N39.0 Urinary tract infection, site not specified; J44.1 Chronic obstructive pulmonary disease with (acute) exacerbation; I13.0 Hypertensive heart and chronic kidney disease with heart failure and stage 1 through stage 4 chronic kidney disease, or unspecified chronic kidney disease; I50.30 Unspecified diastolic (congestive) heart failure; N18.9 Chronic kidney disease, unspecified; B96.89 Other specified bacterial agents as the cause of diseases classified elsewhere; D63.8 Anemia in other chronic diseases classified elsewhere; E87.5 Hyperkalemia; E11.51 Type 2 diabetes mellitus with diabetic peripheral angiopathy without gangrene; E11.22 Type 2 diabetes mellitus with diabetic chronic kidney disease; E11.65 Type 2 diabetes mellitus with hyperglycemia; F41.9 Anxiety disorder, unspecified; G89.29 Other chronic pain; T40.2X5A Adverse effect of other opioids, initial encounter; T42.4X5A Adverse effect of benzodiazepines, initial encounter; T42.8X5A Adverse effect of antiparkinsonism drugs and other central muscle-tone depressants, initial encounter; Z66 Do not resuscitate; Z89.511 Acquired absence of right leg below knee; Z87.11 Personal history of peptic ulcer disease; Z95.0 Presence of cardiac pacemaker; Z87.891 Personal history of nicotine dependence; Z79.891 Long term (current) use of opiate analgesic; Z79.899 Other long term (current) drug therapy; Z79.84 Long term (current) use of oral hypoglycemic drugs
CPT/HCPCS: 36600; 70450; 70496; 70498; 71045; 80048; 80053; 80061; 80307; 81001; 82550; 82553; 82803; 82962; 83036; 83605; 83690; 83735; 84100; 84443; 84484; 85025; 85610; 85730; 86850; 86900; 86901; 87040; 87081; 87086; 92526; 92610; 93005; 93971; 94640; 94660; 97167; C9113; J0360; J0692; J1200; J1644; J1815; J2274; J2405; J2920; J2930; J7030; Q9967